=== PATIENT | male | born 1975 | race Caucasian/White ===

== ENCOUNTER 2016-10-02 06:42 | Inpatient (IN) | payer BC, OTHER ==
[2016-08-12 08:57] VITALS: BMI 27.0
[2016-08-12 09:10] VITALS: BMI 27.0
--- NOTE | 2016-08-12 09:23 | PAT Medication Instructions ---
Service Date Aug 12, 2016. Current Home Medication List Gabapentin (Neurontin), 300 MG PO TID Oxycodone Ir (Roxicodone Ir), 10 MG PO Q4-6H Tramadol (Ultram), 50 MG PO BID Medication Instructions For Your Scheduled Surgery - Take the following medications the morning of surgery with a sip of water OTHERWISE NOTHING TO EAT OR DRINK AFTER MIDNIGHT: Oxycodone Ir (Roxicodone Ir), 10 MG PO Q4-6H (may take if needed up to 4 hours prior to surgery) Tramadol (Ultram), 50 MG PO BID (may take if needed up to 4 hours prior to surgery) Gabapentin (Neurontin), 300 MG PO TID - Take the following medications as scheduled the night before surgery: Oxycodone Ir (Roxicodone Ir), 10 MG PO Q4-6H Tramadol (Ultram), 50 MG PO BID Gabapentin (Neurontin), 300 MG PO TID If you have any questions please call us at [phone] (Rhonda Banuelos PA-C ) or [phone] or [phone]
[2016-08-12 10:02] LABS: BASO % 0.4 %; BASO ABS # 0.03 K/uL (0-0.2); COMPLETE YES; HEMATOCRIT 42.2 % (42-52); IG% 0.1 %; LYMPH % 25.8 %; LYMPH ABS # 1.79 K/uL (1.2-3.4); MEAN CORPUSCULAR HEMOGLOBIN 30.8 pg (25-34); MEAN CORPUSCULAR HGB CONC 33.2 g/dl (32-36); MEAN PLATELET VOLUME 10.6 fL (7.4-10.4); MONO % 9.2 %; NEUT % 61.5 %; PLATELET COUNT 197 K/uL (130-400); RED BLOOD COUNT 4.54 M/uL (4.7-6.1); WHITE BLOOD COUNT 6.95 K/uL (4.8-10.8)
--- NOTE | 2016-08-12 10:19 | DIAGNOSTIC IMAGING REPORT ---
CHEST PREADMISSION(PA/LAT) CLINICAL HISTORY: Preoperative chest COMPARISON STUDY: No previous studies for comparison. FINDINGS: The cardiac and mediastinal contours are normal. There is no evidence of focal pulmonary consolidation. There is no evidence of failure. No pleural effusions are visualized.[ There are minimal left basilar atelectatic changes. IMPRESSION: No active disease in the chest. Electronically signed by: Louis Fraire M.D. 08/12/2016 10:18 AM
[2016-08-12 10:28] LABS: BUN/CREATININE RATIO 12.5 (10-20); CALCIUM 8.9 mg/dl (8.5-10.1); CREATININE 1.1 mg/dl (0.60-1.40); POTASSIUM 4.3 mmol/L (3.5-5.1)
--- NOTE | 2016-08-28 07:13 | History & Physical Bridge Note ---
H&P Re-Evaluation Bridge Note: I have examined the patient, reviewed the History & Physical and in the interval since the performance of the History & Physical I have noted the following changes of clinical significance: No changes noted
[~2016-10-02] VITALS: Ht 188 cm; Wt 91.0 kg
[2016-10-02] VITALS (8 sets, daily range): BP systolic 107–147; BP diastolic 72–94; PULSE 57–65; TEMP 36.4–36.7; O2SAT 95–100; Ht 188 cm; Wt 91.0 kg
[~2016-10-02 06:42] MED LIST: CEFAZOLIN 2000 MG/60 ML D5W 60 ML IV SCH; CEFAZOLIN 2000 MG/60 ML D5W IV SCH; GABA-113 PO; LACTATED RINGER'S 1000ML 1,000 ML IV SCH; LACTATED RINGER'S 1000ML IV SCH; OXYC1TAB3 PO; TRAM-10 PO
--- NOTE | 2016-10-02 10:14 | HISTORY & PHYSICAL EXAMINATION ---
DATE OF ADMISSION: 10/02/2016 CHIEF COMPLAINT: Low back and left leg pain. HISTORY OF PRESENT ILLNESS: Mr. Núñez is a pleasant individual who has been having difficulties with his lower back and pain going down his left leg for over a year. There is no specific trauma or event that had occurred. He has left leg pain that goes down to the knee. Any type of activity exacerbates his symptoms. He has had several epidural injections and at this point is considering possible surgical intervention. He denies any jovanni weakness, any other numbness, tingling or paresthesias. PAST MEDICAL HISTORY: Significant for lumbar disc herniation. MEDICATIONS: He is currently taking gabapentin, oxycodone, and tramadol trying to control his pain. He is not taking any other medications. ALLERGIES: He has no listed drug allergies. REVIEW OF SYSTEMS: Recorded in the patient's medical history. SOCIAL HISTORY: The patient is to use alcohol in the past, but is not currently using. He is a former smoker. PHYSICAL EXAMINATION: GENERAL: On exam, he stands with an apparent level pelvis. Chelo line is midline. Moves easily about the exam room. MUSCULOSKELETAL: Lower extremity motor exam reveals focal atrophy. Strength and sensation both intact. Gait stable. Visual lee are grossly intact. SKIN: Intact. ABDOMEN: Soft, nontender. EXTREMITIES: Calves are soft and nontender. CARDIOVASCULAR: Reveals no gross abnormalities. The patient is alert and oriented. RADIOGRAPHIC IMAGES: A CAT scan from 10/09/2015 is available for review. This reveals severe left-sided neural foraminal stenosis at L5-S1. There is vacuum disc phenomenon at this level as well. ASSESSMENT AND PLAN: The patient has significant disc space collapse at L5-S1 with significant neural foraminal stenosis on the left. He has failed conservative measures and at this point, he is considering surgical intervention. Surgically, I would perform a lumbar decompression at L5-S1. This will be done in conjunction with instrumented fusion to help maintain foraminal space. The main benefit of this surgery will be significant chance for reduction of his radicular complaints to a lesser degree his lower back pain. Risks and benefits were described and he will proceed with surgical intervention described above.
[2016-10-02] MEDS ORDERED: ROCURONIUM BROMIDE 10 MG/ML 5 ML VIAL ONE (11:23)
[2016-10-02] MEDS ORDERED: PROPOFOL IV EMULSION 10 MG/ML 20 ML VIAL IV ONE (11:23)
[2016-10-02] MEDS ORDERED: DEXAMETHASONE SOD INJ 4 MG/ML VIAL ONE ×2 (11:23→11:47)
[2016-10-02] MEDS ORDERED: FENTANYL CITRATE INJ 50 MCG/1 ML 2 ML VIAL ONE ×5 (11:23→16:35)
[2016-10-02] MEDS ORDERED: ONDANSETRON INJ 2 MG/ML 2 ML VIAL ONE ×2 (11:23→11:47)
[2016-10-02] MEDS ORDERED: EpHEDrine SULFATE INJ 50 MG/ML AMP ONE (11:23)
[2016-10-02] MEDS ORDERED: MIDAZOLAM HCL 1 MG/ML 2ML VIAL ONE ×2 (11:23→15:30)
[2016-10-02] MEDS ORDERED: LIDOCAINE HCL 2% 2 ML VIAL (20MG/ML) ONE (11:23)
[2016-10-02] MEDS ORDERED: PHENYLEPHRINE HCL INJ 10 MG/ML VIAL ONE (11:23)
[2016-10-02] MEDS ORDERED: NEOSTIGMINE METHYLSULFATE 1 MG/ML 10ML VIAL ONE (11:23)
[2016-10-02] MEDS ORDERED: SUCCINYLCHOLINE CHLORIDE 20 MG/ML 10 ML VIAL IV ONE (11:23)
[2016-10-02] MEDS ORDERED: GLYCOPYRROLATE INJ 0.2 MG/ML VIAL ONE (11:23)
[2016-10-02] MEDS ORDERED: HYDROmorphone INJ 2 MG/ML SYR/VIAL ONE ×2 (14:09→17:36)
[2016-10-02] MEDS ORDERED: BUPIVACAINE/EPINEPHRINE 0.5% MPF 1:200,000 30 ML VIAL INJ ONE (14:13)
[2016-10-02] MEDS ORDERED: NALOXONE HCL 0.4 MG/1 ML VIAL/CARP IV PRN ×2 (15:15)
[2016-10-02] MEDS ORDERED: FLOSEAL HEMOSTATIC MATRIX 10ML TOP ONE (15:15)
[2016-10-02] MEDS ORDERED: BISACODYL 10 MG SUPP PR PRN (15:15)
[2016-10-02] MEDS ORDERED: hydrOXYzine HCL 25 MG TAB PO PRN (15:15)
[2016-10-02] MEDS ORDERED: ACETAMINOPHEN 500 MG TAB PO PRN (15:15)
[2016-10-02] MEDS ORDERED: SODIUM CHLORIDE 0.9% 1000ML 1,000 ML IV SCH (15:15)
[2016-10-02] MEDS ORDERED: PROMETHAZINE HCL INJ 12.5 MG in SODIUM CHLORIDE 0.9% 50ML 50 ML IV PRN (15:15)
[2016-10-02] MEDS ORDERED: MAGNESIUM HYDROXIDE SUSP 30 ML UDC PO PRN (15:15)
[2016-10-02] MEDS ORDERED: FAMOTIDINE 20 MG TAB PO PRN (15:15)
[2016-10-02] MEDS ORDERED: ONDANSETRON INJ 2 MG/ML 2 ML VIAL IV PRN ×2 (15:15→16:15)
[2016-10-02] MEDS ORDERED: LORAZEPAM INJ 0.5 MG in SYRINGE 0 ML IV PRN (15:15)
[2016-10-02] MEDS ORDERED: DO NOT ADMINISTER FLU VACCINE PRN ×3 (15:15)
[2016-10-02] MEDS ORDERED: DO NOT ADMINISTER PNEUMOCOCCAL VACCINE PRN ×2 (15:15)
[2016-10-02] MEDS ORDERED: METOCLOPRAMIDE HCL INJ 5 MG/ML 2 ML VIAL IV PRN (15:15)
[2016-10-02] MEDS ORDERED: ACETAMINOPHEN IV 100 ML IV PRN (15:15)
[2016-10-02] MEDS ORDERED: SOD PHOSPHATE/SOD BIPHOSPHATE ENEMA 132 ML BTL PR PRN (15:15)
--- NOTE | 2016-10-02 15:15 | [facility] Post Operative Brief Note ---
Immediate Operative Summary Operative Date Oct 02, 2016. Pre-Operative Diagnosis Lumbar Spinal Stenosis Post-Operative Diagnosis Lumbar Spinal Stenosis Procedure(s) Performed tlif Surgeon Dr. Herrmnan Film Drying Machine Operator Surgeon(s) HALEY Infante Estimated Blood Loss 100 Findings stenosis Specimens none per surgeon
[2016-10-02] MEDS ORDERED: BACITRACIN 50000 UNIT VIAL IR ONE (15:16)
--- NOTE | 2016-10-02 15:20 | DIAGNOSTIC IMAGING REPORT ---
LUMBAR SPINE, INTRAOPERATIVE FLUOROSCOPY HISTORY: L5-S1 decompression/fusion. FLUOROSCOPY TIME: 14.8 seconds. FINDINGS: Intraoperative fluoroscopy was provided for the lumbar spine. 2 fluoroscopic spot images were obtained. L5-S1 posterior decompression and fusion with pedicle screws and rods. The hardware appears intact. IMPRESSION: Fluoroscopy provided for a L5-S1 posterior decompression/fusion. Electronically signed by: Emilio Carrasco M.D. 10/02/2016 3:19 PM Dictated Date/Time: 10/02/2016 3:18 PM
[2016-10-02] MEDS: HYDROmorphone HCL 0.5MG/ML 50 ML CASSETTE IV PRN ×4 (15:40→19:00)
--- NOTE | 2016-10-02 15:54 | OPERATIVE REPORT ---
DATE OF OPERATION: 10/02/2016 PREOPERATIVE DIAGNOSIS: Spinal stenosis L5-S1. POSTOPERATIVE DIAGNOSIS: Same. PROCEDURE PERFORMED: 1. Lumbar decompression, medial facetectomy and foraminotomy L5-S1. 2. Posterior spinal fusion L5-S1. 3. Placement posterior instrumentation using Orthros rods and screws, L5-S1. 4. Interbody fusion L5-S1. 5. Placement of PEEK cage 9 x 26 mm at L5-S1. 6. Placement of locally harvested morselized autograft posterior gutters. 7. Placement of FiberNet and OsteoStrux in the the interbody space and posterior gutters. SURGEON: Dr. Scott Herrmann. SENIOR SYSTEMS DEVELOPER: Harvey Brasher PA-C. Due to the complex nature of the procedure, the entire surgery was performed with the talent acquisition assistant of Harvey Brasher PA-C. The assistant professor sculpture, under direct supervision, was involved in the actual performance of all aspects of the surgical procedure including hemostasis, tissue retraction and incision, instrument management, patient positioning, and wound closure. ANESTHESIA: General. DISPOSITION: The patient awakened and taken to PACU in stable condition. HISTORY OF PATIENT'S PROBLEMS: This is a 40-year-old male that presents with above-mentioned diagnosis. After failing an extensive course of nonoperative care, elected to undergo the above-mentioned procedure. Risks, benefits, pros, cons, and alternatives were outlined in detail preoperatively. OPERATION AND FINDINGS: DESCRIPTION OF PROCEDURE: The patient was met with preoperatively, case discussed and all questions were addressed. At that point the patient was taken back to operative suite and after undergoing successful general intubation by the department of anesthesia was placed in prone position on Wilmar table atop Ricki frame. All bony prominences were well padded and the eyes were inspected to ensure there was no external pressure placed upon them. At this point, lumbar spine was prepped and draped in normal sterile fashion. Sharp dissection with the assistance of Bovie cautery performed down to and exposing the lamina and transverse processes of L5 and the sacral ala bilaterally. From a caudal to cephalad fashion, complete laminectomy of L5 was performed. Endplates curetted to subcortical bleeding bone and a 9 x 26 mm PEEK cage filled with OsteoStrux and FiberNet tapped into position. The rods were then locked into final position bilaterally and transverse processes of L5 and the sacral ala burred to subcortical bone. FiberNet, OsteoStrux and locally harvested morcellized autograft was placed in the posterior gutters. A 7 flat SONIA drain was inserted. Incision was closed with 1-0 Vicryl in the fascia, 2-0 Vicryl subcutaneously, 4-0 Monocryl for final skin closure. Steri-Strips and sterile dressing placed. The patient was awakened and taken to PACU in stable condition. I attest to the content of the Intraoperative Record and any orders documented therein. Any exceptio ns are noted below.
[2016-10-02] MEDS ORDERED: FENTANYL CITRATE INJ 50 MCG/1 ML 2 ML VIAL IV PRN (16:15)
[2016-10-02] MEDS ORDERED: ATROPINE SULFATE 0.1 MG/ML 5ML SYR IV PRN (16:15)
[2016-10-02] MEDS: HYDROmorphone INJ 1 MG/ML SYR IV PRN ×8 (16:15→17:10)
[2016-10-02] MEDS ORDERED: EpHEDrine SULFATE INJ 50 MG/ML AMP IV PRN (16:15)
[2016-10-02] MEDS ORDERED: PROMETHAZINE HCL INJ 6.25 MG in SODIUM CHLORIDE 0.9% 50ML 50 ML IV PRN (16:15)
[2016-10-02] MEDS ORDERED: NURSING VERBAL MED ORDER ONE ×5 (17:15→18:00)
--- NOTE | 2016-10-02 18:32 | Anesthesiology Progress Note ---
Anesthesia Post Op Note Date & Time Oct 02, 2016 at 18:30 Vital Signs Pain Intensity: 10.0 Vital Signs Past 12 Hours Date Time Temp Pulse Resp B/P Pulse Ox O2 Delivery O2 Flow Rate FiO2 10/02/16 18:03 158/95 10/02/16 18:01 59 15 100 10/02/16 18:01 57 15 10/02/16 17:58 137/95 10/02/16 17:56 57 16 100 10/02/16 17:56 56 16 10/02/16 17:54 134/89 10/02/16 17:51 74 16 10/02/16 17:51 75 16 100 10/02/16 17:48 144/89 10/02/16 17:46 59 16 100 10/02/16 17:46 59 16 10/02/16 17:43 149/98 10/02/16 17:41 82 16 100 10/02/16 17:41 85 16 10/02/16 17:38 136/81 10/02/16 17:36 67 16 100 10/02/16 17:36 66 16 10/02/16 17:33 146/86 10/02/16 17:31 94 16 100 10/02/16 17:31 92 16 10/02/16 17:29 139/89 10/02/16 17:26 66 12 98 10/02/16 17:26 69 12 10/02/16 17:23 137/80 10/02/16 17:21 62 6 100 10/02/16 17:21 61 6 10/02/16 17:18 133/88 10/02/16 17:16 57 16 100 10/02/16 17:16 59 16 10/02/16 17:13 130/85 10/02/16 17:11 65 16 10/02/16 17:11 67 16 100 10/02/16 17:08 133/93 10/02/16 17:06 62 16 100 10/02/16 17:06 60 16 10/02/16 17:03 120/79 10/02/16 17:01 57 16 10/02/16 17:01 58 16 100 10/02/16 16:59 132/85 10/02/16 16:56 60 29 10/02/16 16:56 60 29 100 10/02/16 16:53 168/104 1/20/17 16:51 72 18 20/17 16:51 73 18 100 20/17 16:50 159/99 20/17 16:48 146/110 20/17 16:46 61 16 20/17 16:46 63 16 100 20/17 16:45 63 15 100 20/17 16:45 60 15 2017 16:43 135/95 20/17 16:40 87 13 17 16:40 88 13 100 2017 16:38 152/103 20/17 16:35 84 16 100 20/17 16:35 84 16 17 16:33 152/105 17 16:30 66 16 17 16:30 66 16 100 20/17 16:29 143/103 17 16:25 83 18 100 17 16:25 82 18 17 16:24 85 17 100 17 16:24 85 17 17 16:23 172/98 17 16:19 73 21 100 17 16:19 74 21 17 16:18 157/99 17 16:14 82 10 157/92 100 17 16:14 81 10 17 16:09 65 14 17 16:09 66 14 100 17 16:08 65 17 17 16:08 65 17 171/107 99 17 16:03 67 2 155/99 100 17 16:03 69 2 20/17 15:58 88 14 17 15:58 88 14 156/109 97 20/17 15:54 169/104 20/17 15:53 87 6 20/17 15:53 84 6 97 2017 15:48 86 15 2017 15:48 85 15 164/105 100 2017 15:43 17 20/17 15:43 82 17 2017 15:38 80 16 147/98 100 2017 15:38 36.5 84 18 147/98 100 Mask 10 10/02/16 15:38 82 16 10/02/16 07:03 36.4 58 18 107/81 95 Room Air Notes Mental Status: alert / awake / arousable, participated in evaluation Pt Amnestic to Procedure: Yes Nausea / Vomiting: adequately controlled Pain: adequately controlled Airway Patency, RR, SpO2: stable & adequate BP & HR: stable & adequate Hydration State: stable & adequate Anesthetic Complications: no major complications apparent Patient had significant pain in pacu with high narcotic tolerance. Dr Herrmann was called by the pacu nurse and did increase the teaseler to have a basal rate. patient will be placed on continuous pulse oxymetry overnight given his basal rate of hydromorphone
[2016-10-02] MEDS: LACTATED RINGER'S 1000ML 1,000 ML IV SCH ×2 (18:43→21:47)
[2016-10-02] MEDS: GABAPENTIN 300 MG CAP PO SCH (20:45)
[2016-10-02] MEDS: TRAMADOL HCL 50 MG TAB PO SCH (20:45)
[2016-10-02] MEDS: DOCUSATE SODIUM/SENNA 50/8.6MG TAB PO SCH (20:46)
[2016-10-02] MEDS: CEFAZOLIN IV 2,000 MG in DEXTROSE 5% 50ML 50 ML IV SCH (21:45)
[2016-10-02] MEDS: DEXAMETHASONE INJ 6 MG in SYRINGE 0 ML IV SCH (21:47)
[2016-10-03 03:50] VITALS: BP 123/72; PULSE 57; TEMP 36.5; O2SAT 99
[2016-10-03] MEDS: LACTATED RINGER'S 1000ML 1,000 ML IV SCH (04:12)
[2016-10-03] MEDS: DEXAMETHASONE INJ 6 MG in SYRINGE 0 ML IV SCH ×2 (05:39→13:29)
[2016-10-03] MEDS: CEFAZOLIN IV 2,000 MG in DEXTROSE 5% 50ML 50 ML IV SCH (05:39)
[2016-10-03] MEDS: OXYCODONE HCL IR 5 MG TAB (IMMEDIATE RELEASE) PO PRN ×3 (05:43→21:35)
[2016-10-03] MEDS: LORAZEPAM 0.5 MG TAB PO PRN ×2 (05:45→20:56)
[2016-10-03] MEDS ORDERED: DC PCA ONE (06:00)
[2016-10-03 06:07] LABS: BASO % 0.1 %; BASO ABS # 0.01 K/uL (0-0.2); COMPLETE YES; IG% 0.2 %; LYMPH % 6.1 %; LYMPH ABS # 0.63 K/uL (1.2-3.4); MEAN CELL VOLUME 90.9 fL (80-100); MEAN CORPUSCULAR HEMOGLOBIN 30.5 pg (25-34); MEAN CORPUSCULAR HGB CONC 33.5 g/dl (32-36); MONO % 4.3 %; NEUT % 89.3 %; PLATELET COUNT 175 K/uL (130-400); WHITE BLOOD COUNT 10.32 K/uL (4.8-10.8)
[2016-10-03 06:21] VITALS: BP 132/79; PULSE 60; TEMP 36.7; O2SAT 99
[2016-10-03] MEDS: HYDROmorphone INJ 1 MG/ML SYR IV PRN ×4 (06:32→19:44)
[2016-10-03 06:37] LABS: BUN/CREATININE RATIO 13.7 (10-20); CALCIUM 9.3 mg/dl (8.5-10.1); CREATININE 0.78 mg/dl (0.60-1.40)
[2016-10-03] MEDS ORDERED: KETOROLAC TROMETHAMINE 30 MG/ML VIAL IV PRN (08:45)
[2016-10-03] MEDS ORDERED: RXC5 PO (08:46)
--- NOTE | 2016-10-03 08:47 | Discharge Instructions ---
Discharge Instructions Admission Reason for Admission: Lumbar Spinal Stenosis Discharge Discharge Diagnosis / Problem: stenosis Discharge Goals Goal(s): Improve function Activity Recommendations Activity Limitations: per Instructions/Follow-up section . Instructions / Follow-Up Instructions / Follow-Up ACTIVITY RECOMMENDATIONS: SELF CARE INSTRUCTIONS AFTER THORACIC/LUMBAR FUSIONS 1. You may walk to your tolerance. It is good exercise for your legs and back. Expect some back and intermittent leg aches and pains. 2. You may perform "counter-top" level activities (make a sandwich, ellis with a project, etc.). 3. No bending or lifting of more than 10 pounds or back twisting of any nature (roll like a log when turning in bed). 4. You may ride in a car for 20-30 minutes at a time. No driving until after your first visit with your doctor. 5. Frequent changes of position and restricting sitting to 30 minutes at a time will help limit the amount of back spasms and stiffness you may experience. 6. You may discontinue the use of ambulatory aids (cane, crutches, etc.) once your strength and confidence allow. 7. You may engine buildup mechanic the shower and let water strike your incision when you arrive home at least once daily. Do not take a tub bath, sit in a hot tub or go into a swimming pool until after your first recheck in the office. SPECIAL CARE INSTRUCTIONS: VERY IMPORTANT TO READ AND REVIEW A. Your surgical incision has been closed with a cosmetic suture under the skin that will dissolve in about 6 weeks. In 14 days, you can use a pair of clean scissors and cut the suture that is left outside of the skin at the ends of your incision. 1. The small skin tapes can be removed 7 days after surgery if they have not fallen off by that point. 2. You may keep the wound open to air as much as possible to promote healing after post-op day number 5 unless told otherwise by your doctor. 3. If you think the wound looks like it is becoming infected (redness or worsening drainage) and/or you are experiencing fever, chill or worsening back pain and muscle spasms, contact the office so that we may evaluate you as soon as possible. B. Complications are uncommon, but please contact us if you have any signs or symptoms of: 1. wound infection (fever higher than 102.5 degrees F, redness, separation of wound, drainage, or increasing pain from the incision) 2. blood clots in legs (pain, swelling, redness and warmth in legs) 3. urinary tract infection (fever higher than 102.5 degrees F, burning upon urination or increased frequency of urination) 4. nerve problems (inability to walk on your toes or heels, numbness, loss of bowel or bladder control) 5. any other symptoms that concern you C. Please call the office at if you have any concerns or questions about your operation or recovery. D. No smoking! Smoking drastically decreases the chance of a solid fusion. E. Do not take any anti-inflammatory medications (Indocin, Advil, Motrin, Aspirin, Naprosyn, etc.) as these may inhibit the chance of a solid fusion. Tylenol is okay to take for pain. MANAGING PAIN AFTER SPINAL SURGERY 1. Narcotic medication is intended for short-term use and will be provided for surgical pain. Surgical pain usually lasts for a period of 4-6 weeks. Narcotic medication includes Percocet, Vicodin, Darvocet, Tylenol #3 or Lortab. 2. Longer-term pain is more appropriately treated with non-narcotic medication such as Tylenol ES. 3. Muscle spasm is not appropriately treated with narcotics. Muscle relaxers such as Soma, Flexeril or Skelaxin can be used along with Tylenol ES. 4. Remember that we all live with some "aches and pains". This is not unusual or uncommon after an injury or as we get older. a. Back pain is expected and may include muscle spasms for 4 to 6 weeks after surgery. The pain should gradually improve. If the pain worsens for no apparent reason, please contact the office. b. Intermittent leg pain may also be experienced and should not be concerned about unless it worsens for no apparent reason. If so, please contact the office. 5. We will provide appropriate medication within the normal guidelines of their prescribed use. We will also be very cautious and aware of potential abuse and extended duration of patients' medication needs. a. Pain medications are for your comfort and to assist with sleep and rest so that the tissue can heal. They are not provided in order to return to normal activity and should not be used through the day. To do so or worsening pain at night can result from ongoing tissue damage and development of tolerance to the prescribed medicine. 6. Please allow 2-3 days to process refills. Prescriptions will not be mailed but must be picked up at the office. FOLLOW UP VISIT: Keep your scheduled follow-up appointment. Any questions, please call the office at . Current Hospital Diet Patient's current hospital diet: Regular Diet Discharge Diet Recommended Diet: Regular Diet Procedures Procedures Performed: L5-S1 Transforaminal Lumbar Decompression/Laminectomy; Discectomy; Placement of Interbody Spacer; Pedicle Screw Fixation; Application Autograft, Posterolateral Gutter Fusion, Use of Fibrinet Pending Studies Studies pending at discharge: no Medical Emergencies . Who to Call and When: Medical Emergencies: If at any time you feel your situation is an emergency, please call 911 immediately. . Non-Emergent Contact Non-Emergency issues call your: Primary Care Provider . "Provider Documentation" section prepared by Scott Herrmann. VTE Core Measure Inpt VTE Proph given/why not?: Jacques Del Cid, SCD's
[2016-10-03] MEDS: GABAPENTIN 300 MG CAP PO SCH ×3 (08:56→20:55)
[2016-10-03] MEDS: TRAMADOL HCL 50 MG TAB PO SCH ×2 (08:56→20:56)
[2016-10-03] MEDS ORDERED: NURSING VERBAL MED ORDER ONE (09:15)
--- NOTE | 2016-10-03 09:48 | PROGRESS NOTE ---
DATE: 10/03/2016 DATE: 10/03/2016. SUBJECTIVE: Postop day 1. Back pain is controlled. Leg pain improved. Vital signs stable. T-max 36.7. SONIA drained 50 mL. Hematocrit this a.m. is 40.0. OBJECTIVE: On exam the patient has good strength to testing and appears comfortable, has been up and ambulatory. ASSESSMENT: Status post lumbar decompression and fusion. PLAN: At this time, will continue physical therapy today. Anticipate discharge home tomorrow.
[2016-10-03 12:23] VITALS: BP 106/64; PULSE 61; TEMP 36.8; O2SAT 94
[2016-10-03] MEDS: ALUMINUM/MAGNESIUM SUSP 30 ML UDC PO PRN ×2 (14:21→20:59)
[2016-10-03 15:01] VITALS: BP 92/52; PULSE 65; TEMP 36.8; O2SAT 93
[2016-10-03 15:02] VITALS: BP 99/61
[2016-10-03] MEDS: DOCUSATE SODIUM/SENNA 50/8.6MG TAB PO SCH (20:55)
[2016-10-03 23:00] VITALS: BP 103/63; PULSE 60; TEMP 36.4; O2SAT 95
[2016-10-04] MEDS: OXYCODONE HCL IR 5 MG TAB (IMMEDIATE RELEASE) PO PRN (05:59)
[2016-10-04] MEDS: POLYETHYLENE (MIRALAX) 17 GM PACK PO SCH ×2 (06:00→11:36)
[2016-10-04 06:40] VITALS: BP 133/89; PULSE 87; TEMP 36.5; O2SAT 94
[2016-10-04 07:30] VITALS: O2SAT 94
[2016-10-04] MEDS: GABAPENTIN 300 MG CAP PO SCH ×2 (07:36→13:34)
[2016-10-04] MEDS: TRAMADOL HCL 50 MG TAB PO SCH (07:37)
[2016-10-04] MEDS: HYDROmorphone INJ 1 MG/ML SYR IV PRN ×2 (07:40→12:14)
[2016-10-04] MEDS ORDERED: NURSING VERBAL MED ORDER ONE (11:45)
[2016-10-04 12:40] VITALS: BP 133/89; PULSE 87; TEMP 36.5; O2SAT 94
--- NOTE | 2016-10-05 02:01 | DISCHARGE SUMMARY ---
PRINCIPAL DIAGNOSIS: Spinal stenosis. HOSPITAL COURSE FOLLOWS: On October 02, patient underwent multilevel lumbar decompression and fusion, tolerated this well and taken to the orthopedic floor postoperatively. Postop day #1, he was up and ambulatory. Leg pain improved. Progressed to postop day #2, SONIA drain decreased appropriately, subsequently discharged home. Discharge orders and instructions found on the chart for further review.
== END 2016-10-04 13:50 | disposition home or self-care (01) | DRG 460 ==
LOC: ENRESERVDT → ENRESERVTM → C.ACU 06:42 → C.3E 12:00
PROVIDERS: ADMIT Orthopaedic Surgery Orthopaedic Surgery of the Spine; ATTEND Orthopaedic Surgery Orthopaedic Surgery of the Spine
PROC: 0SG30AJ Fusion of Lumbosacral Joint with Interbody Fusion Device, Posterior Approach, Anterior Column, Open Approach (ICD-10-PCS; principal; 2016-10-02 12:00)
PROC: 0SG3071 Fusion of Lumbosacral Joint with Autologous Tissue Substitute, Posterior Approach, Posterior Column, Open Approach (ICD-10-PCS; principal; 2016-10-02 12:00)
DX: M48.07 Spinal stenosis, lumbosacral region (principal); Z87.891 Personal history of nicotine dependence

== ENCOUNTER 2021-08-17 23:57 | Inpatient (IN) ==
[2021-08-18] MEDS ORDERED: ACETAMINOPHEN 1,000 MG/100 ML VIAL IV STA (00:36)
[2021-08-18] MEDS ORDERED: GI COCKTAIL ED USE PO ONE (00:36)
[2021-08-18] MEDS ORDERED: KETOROLAC 30 MG/ML VIAL IV STA (00:36)
[2021-08-18] MEDS ORDERED: PROCHLORPERAZINE 1 ML IV ONE (00:36)
[2021-08-18] MEDS ORDERED: diphenhydrAMINE 50 MG/ML VIAL IV STA (00:36)
[2021-08-18 00:41] LABS: Basophils # (auto) 0.02 K/uL (0-0.2); Basophils % (auto) 0.1 %; Eosinophils # (auto) 0.01 K/uL (0-0.5); Eosinophils % (auto) 0.1 %; Hematocrit (blood only) 43.2 % (42-52); Hemoglobin 14.3 g/dL (14.0-18.0); Immature Granulocytes # (auto) 0.03 K/uL (0.00-0.02); Immature Granulocytes % (auto) 0.2 %; Lymphocytes # (auto) 0.97 K/uL (1.2-3.4); Lymphocytes % (auto) 5.8 %; Mean Corpuscular Hemoglobin 31.3 pg (25-34); Mean Corpuscular Hgb Conc 33.1 g/dL (32-36); Mean Corpuscular Volume 94.5 fL (80-100); Mean Platelet Volume 9.6 fL (7.4-10.4); Monocytes # (auto) 1.17 K/uL (0.11-0.59); Neutrophils # (auto) 14.55 K/uL (1.4-6.5); Neutrophils % (auto) 86.8 %; Platelet Count 332 K/uL (130-400); RDW Coefficient of Variation 13.4 % (11.5-14.5); RDW Standard Deviation 45.5 fL (36.4-46.3); Red Blood Count 4.57 M/uL (4.7-6.1); White Blood Count 16.75 K/uL (4.8-10.8)
[2021-08-18] MEDS ORDERED: SODIUM CHLORIDE 0.9% 1000ML 1,000 ML IV SCH ×4 (00:45→18:30)
[2021-08-18 01:03] LABS: Albumin Level 4.1 gm/dl (3.4-5.0); BUN Creatinine Ratio 11.8 (10-20); Calcium 10.2 mg/dl (8.5-10.1); Creatinine Clr Calc Pharmacy 110.2 ml/min; Est GFR (African American) 87.7 ml/min; Est GFR (Non-African American) 75.6 ml/min; Potassium 3.7 mmol/L (3.5-5.1)
[2021-08-18 01:06] LABS: Bilirubin,Total 0.4 mg/dl (0.2-1); Globulin 4.2 gm/dl (2.5-4.0); Total Protein 8.3 gm/dl (6.4-8.2)
[2021-08-18 01:18] LABS: INR 1.1 (0.9-1.1); Partial Thromboplastin Ratio 1.1; Partial Thromboplastin Time 28.5 Seconds (21.0-31.0); Prothrombin Time 10.9 Seconds (9.0-12.0)
[2021-08-18 01:29] LABS: Amylase 359 U/L (25-115); Magnesium 2.2 mg/dl (1.8-2.4); Troponin I < 0.015 ng/ml (0-0.045)
[2021-08-18] MEDS ORDERED: OPTIRAY 320 100ml IV ONE (01:35)
--- NOTE | 2021-08-18 01:47 | Emergency Department Note ---
History of Present Illness General Chief complaint: Abdominal Pain Stated complaint: CENTRAL ABDOMINAL PAIN Time Seen by Provider: 08/18/21 00:20 History of Present Illness Maximum Pain Intensity: 5 This is a 45-year-old male presenting to the emergency department for evaluation of severe epigastric pain for the past 1 day. The patient states the pain does not radiate it is very sharp and located just under his ribs. He has had nausea and vomiting. No difficulty using the bathroom. The patient does not report a history of abdominal surgery in the past. He does have a history of chronic back pain and does take oxycodone 10/325 4 times daily. This has not helped his discomfort. He has not had fevers or chills. No chest pain, chest tightness, shortness of breath, or lower abdominal pain. No flank pain. 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 Beliefs That Will Affect Care: None Current Living Situation: Family Feels Safe at Home: Yes Assistive Devices: None Review of Systems A total of 10 systems reviewed and were otherwise negative Physical Exam Vital Signs Vital Signs - 24 hr 08/17/21 23:59 08/18/21 00:34 08/18/21 00:37 Temperature 36.5 C Temperature Source Temporal Artery Scan Pulse Rate 71 Pulse Rate [Right Finger] 73 Respiratory Rate 18 20 Respiratory Effort / Characteristics Non-Labored Spontaneous Respiratory Depth Normal Respiratory Pattern Regular Blood Pressure 152/93 H Blood Pressure [Left Arm] 162/107 H Blood Pressure Mean 112 Blood Pressure Mean [Left Arm] 125 Blood Pressure Position Sitting Pulse Oximetry 97 98 98 Oxygen Delivery Method Room Air Room Air Room Air Sepsis Recent Fever Within 48 Hours No Sepsis New/Unexplained Change in Mental Status N/A Sepsis Action Taken by Nursing No Action Required 08/18/21 01:00 08/18/21 01:50 08/18/21 02:05 Temperature Temperature Source Pulse Rate Pulse Rate [Right Finger] 89 78 72 Respiratory Rate 20 20 20 Respiratory Effort / Characteristics Respiratory Depth Respiratory Pattern Blood Pressure Blood Pressure [Left Arm] 148/110 H 143/87 H 158/98 H Blood Pressure Mean Blood Pressure Mean [Left Arm] 122 105 118 Blood Pressure Position Pulse Oximetry 99 98 98 Oxygen Delivery Method Room Air Room Air Sepsis Recent Fever Within 48 Hours Sepsis New/Unexplained Change in Mental Status Sepsis Action Taken by Nursing 08/18/21 02:42 08/18/21 03:13 08/18/21 04:23 Temperature Temperature Source Pulse Rate Pulse Rate [Right Finger] 78 73 85 Respiratory Rate 20 20 20 Respiratory Effort / Characteristics Respiratory Depth Respiratory Pattern Blood Pressure Blood Pressure [Left Arm] 164/99 H 130/82 169/101 H Blood Pressure Mean Blood Pressure Mean [Left Arm] 120 98 123 Blood Pressure Position Pulse Oximetry 97 96 97 Oxygen Delivery Method Room Air Room Air Room Air Sepsis Recent Fever Within 48 Hours Sepsis New/Unexplained Change in Mental Status Sepsis Action Taken by Nursing VITALS: Vitals are noted on the nurse's note and reviewed by myself. Vital signs stable. GENERAL: Well-developed, well-nourished, white male who appears moderately uncomfortable on exam. He is overall cooperative. NECK: Supple without nuchal rigidity. No lymphadenopathy. No thyromegaly. Cervical spine is nontender. HEART: Regular rate and rhythm without murmurs gallops or rubs. LUNGS: Clear to auscultation bilaterally without wheezes, rales or rhonchi. No retractions or accessory muscle use. ABDOMEN: Positive normal bowel sounds x 4. Soft with distinct epigastric tenderness. No right upper quadrant or lower tenderness. No flank tenderness. No rash. MUSCULOSKELETAL: No muscle atrophy, erythema, or edema noted. Full range of motion in all extremities. NEURO: Patient was alert and oriented to person place and time. CN II through XII grossly intact. 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 Stop: 09/01/21 18:18 Last Admin: 08/18/21 19:28 Dose: 30 mg Documented by: [id number] Cosigned by: [id number] Famotidine 20 mg/ Syringe 5 mls @ 2.5 mls/min IV BID LEXUS Stop: 09/17/21 09:29 Last Admin: 08/18/21 10:04 Dose: 2.5 mls/min Documented by: [id number] Sodium Chloride (Nss 1000ml) 1,000 mls @ 15 mls/hr IV .Q24H LEXUS Stop: 09/01/21 18:19 Last Admin: 08/18/21 19:38 Dose: 15 mls/hr Documented by: [id number] Discontinued Medications Al Hydrox/Mg Hydrox/Simethicone (Gi Cocktail Ed Use) 1 dose PO ONE ONE Stop: 08/18/21 00:37 Last Admin: 08/18/21 00:53 Dose: 1 dose Documented by: [id number] Diphenhydramine HCl (Diphenhydramine 50 Mg/Ml Vial) 50 mg IV NOW STA Stop: 08/18/21 00:37 Last Admin: 08/18/21 00:53 Dose: 50 mg Documented by: [id number] Hydromorphone HCl (Hydromorphone Inj 1 Mg/Ml Syringe) 1 mg IV Q2H PRN PRN Reason: Pain Stop: 09/01/21 04:43 Last Admin: 08/18/21 10:06 Dose: 1 mg Documented by: [id number] Admin: 08/18/21 07:56 Dose: 1 mg Documented by: [id number] Admin: 08/18/21 05:20 Dose: 1 mg Documented by: [id number] Hydromorphone HCl (Hydromorphone Inj 1 Mg/Ml Syringe) 1 mg IV NOW STA Stop: 08/18/21 10:43 Last Admin: 08/18/21 10:48 Dose: 1 mg Documented by: [id number] Hydromorphone HCl (Hydromorphone Inj 1 Mg/Ml Syringe) 2 mg IV Q2H PRN PRN Reason: Pain Stop: 09/01/21 04:43 Last Admin: 08/18/21 15:09 Dose: 2 mg Documented by: [id number] Admin: 08/18/21 13:08 Dose: 2 mg Documented by: [id number] Hydromorphone HCl (Hydromorphone Inj 1 Mg/Ml Syringe) 1 mg IV NOW STA Stop: 08/18/21 16:43 Last Admin: 08/18/21 16:47 Dose: 1 mg Documented by: [id number] Sodium Chloride (Nss 1000ml) 1,000 mls @ 999 mls/hr IV .Q1H1M LEXUS Stop: 08/18/21 01:45 Last Infusion: 08/18/21 02:10 Dose: 0 mls/hr Documented by: [id number] Admin: 08/18/21 00:53 Dose: 999 mls/hr Documented by: [id number] Acetaminophen (Ofirmev) 1,000 mg in 100 mls @ 400 mls/hr IV NOW STA Stop: 08/18/21 00:50 Last Infusion: 08/18/21 01:09 Dose: 0 mls/hr Documented by: [id number] Admin: 08/18/21 00:53 Dose: 400 mls/hr Documented by: [id number] Prochlorperazine (Compazine) 1 mls @ 1 mls/min IV ONE ONE Stop: 08/18/21 00:37 Last Admin: 08/18/21 00:53 Dose: 1 mls/min Documented by: [id number] Sodium Chloride (Nss 1000ml) 1,000 mls @ 999 mls/hr IV .Q1H1M LEXUS Stop: 08/18/21 02:30 Last Infusion: 08/18/21 03:59 Dose: 0 mls/hr Documented by: [id number] Admin: 08/18/21 02:02 Dose: 999 mls/hr Documented by: [id number] Sodium Chloride (Nss 1000ml) 1,000 mls @ 999 mls/hr IV .Q1H1M LEXUS Stop: 08/18/21 05:44 Last Infusion: 08/18/21 10:31 Dose: 0 mls/hr Documented by: [id number] Admin: 08/18/21 05:29 Dose: 999 mls/hr Documented by: [id number] Sodium Chloride (Nss 1000ml) 1,000 mls @ 175 mls/hr IV .Q5H43M LEXUS Stop: 08/18/21 14:15 Last Infusion: 08/18/21 14:18 Dose: 0 mls/hr Documented by: [id number] Admin: 08/18/21 10:03 Dose: 250 mls/hr Documented by: [id number] Infusion: 08/18/21 09:29 Dose: 250 mls/hr Documented by: [id number] Admin: 08/18/21 05:29 Dose: 250 mls/hr Documented by: [id number] Ioversol (Optiray 320 100ml) 94 ml IV ONCE ONE Stop: 08/18/21 01:36 Last Admin: 08/18/21 01:35 Dose: 94 ml Documented by: [id number] Ketorolac Tromethamine (Ketorolac 30 Mg/Ml Vial) 30 mg IV NOW STA Stop: 08/18/21 00:37 Last Admin: 08/18/21 00:53 Dose: 30 mg Documented by: [id number] Ketorolac Tromethamine (Ketorolac Tromethamine 15 Mg/Ml Vial) 15 mg IV Q6H PRN PRN Reason: Pain Stop: 08/23/21 06:08 Last Admin: 08/18/21 18:00 Dose: 15 mg Documented by: [id number] Admin: 08/18/21 13:07 Dose: 15 mg Documented by: [id number] Admin: 08/18/21 06:25 Dose: 15 mg Documented by: [id number] Morphine Sulfate (Morphine Sulfate 4 Mg/Ml 1 Ml Carp\Vial) 4 mg IV Q30M PRN PRN Reason: Pain Stop: 09/01/21 01:29 Last Admin: 08/18/21 04:18 Dose: 4 mg Documented by: [id number] Admin: 08/18/21 03:12 Dose: 4 mg Documented by: [id number] Admin: 08/18/21 02:36 Dose: 4 mg Documented by: [id number] Admin: 08/18/21 02:02 Dose: 4 mg Documented by: [id number] Medical Decision Making Differential Diagnosis Differential diagnosis: Etiologies such as biliary colic, cholecystitis, hepatitis, pancreatitis, cardiac disease, pancreatitis, gastritis, peptic ulcer disease, appendicitis, cystitis, diverticulitis, mesenteric ischemia, inflammatory bowel disease, ileus, bowel obstruction, testicular/adnexal torsion, aortic pathology, shingles, as well as others were considered Laboratory Data Result diagrams: 08/18/21 00:06 08/18/21 00:06 Lab Results 08/18/21 08/18/21 08/18/21 Range/Units 00:06 00:06 00:52 WBC 16.75 H (4.8-10.8) K/uL RBC 4.57 L (4.7-6.1) M/uL Hgb 14.3 (14.0-18.0) g/dL Hct 43.2 (42-52) % MCV 94.5 (80-100) fL MCH 31.3 (25-34) pg MCHC 33.1 (32-36) g/dL RDW Std Deviation 45.5 (36.4-46.3) fL RDW Coeff of Steffany 13.4 (11.5-14.5) % Plt Count 332 (130-400) K/uL MPV 9.6 (7.4-10.4) fL Immature Gran % (Auto) 0.2 % Neut % (Auto) 86.8 % Lymph % (Auto) 5.8 % Haskell % (Auto) 7.0 % Eos % (Auto) 0.1 % Baso % (Auto) 0.1 % Neut # (Auto) 14.55 H (1.4-6.5) K/uL Lymph # (Auto) 0.97 L (1.2-3.4) K/uL Haskell # (Auto) 1.17 H (0.11-0.59) K/uL Eos # (Auto) 0.01 (0-0.5) K/uL Baso # (Auto) 0.02 (0-0.2) K/uL Immature Gran # (Auto) 0.03 H (0.00-0.02) K/uL PT 10.9 (9.0-12.0) Seconds INR 1.1 (0.9-1.1) APTT 28.5 (21.0-31.0) Seconds PTT Ratio 1.1 Sodium 138 (136-145) mmol/L Potassium 3.7 (3.5-5.1) mmol/L Chloride 103 (98-107) mmol/L Carbon Dioxide 29 (21-32) mmol/L Anion Gap 6.0 (3-11) BUN 14 (7-18) mg/dl Creatinine 1.16 (0.6-1.4) mg/dl Est Cr Clr Drug Dosing 110.2 ml/min Est GFR ( Amer) 87.7 ml/min Est GFR (Non-Af Amer) 75.6 ml/min BUN/Creatinine Ratio 11.8 (10-20) Glucose 166 H (70-99) mg/dl Calcium 10.2 H (8.5-10.1) mg/dl Magnesium (1.8-2.4) mg/dl Total Bilirubin 0.4 (0.2-1) mg/dl AST 15 (15-37) U/L ALT 30 (12-78) Alkaline Phosphatase 86 (45-117) U/L Troponin I (0-0.045) ng/ml Total Protein 8.3 H (6.4-8.2) gm/dl Albumin 4.1 (3.4-5.0) gm/dl Globulin 4.2 H (2.5-4.0) gm/dl Albumin/Globulin Ratio 1.0 (0.9-2) Triglycerides (0-150) mg/dl Cholesterol (0-200) mg/dl LDL Cholesterol, Calc mg/dl VLDL Cholesterol, Calc mg/dl HDL Cholesterol mg/dl Cholesterol/HDL Ratio Amylase (25-115) U/L Lipase 2671 H (73-393) U/L Ethyl Alcohol mg/dL (0-3) mg/dl SARS-CoV-2, RNA, NAAT (NEGATIVE) 08/18/21 08/18/21 08/18/21 Range/Units 00:52 00:52 01:00 WBC (4.8-10.8) K/uL RBC (4.7-6.1) M/uL Hgb (14.0-18.0) g/dL Hct (42-52) % MCV (80-100) fL MCH (25-34) pg MCHC (32-36) g/dL RDW Std Deviation (36.4-46.3) fL RDW Coeff of Steffany (11.5-14.5) % Plt Count (130-400) K/uL MPV (7.4-10.4) fL Immature Gran % (Auto) % Neut % (Auto) % Lymph % (Auto) % Haskell % (Auto) % Eos % (Auto) % Baso % (Auto) % Neut # (Auto) (1.4-6.5) K/uL Lymph # (Auto) (1.2-3.4) K/uL Haskell # (Auto) (0.11-0.59) K/uL Eos # (Auto) (0-0.5) K/uL Baso # (Auto) (0-0.2) K/uL Immature Gran # (Auto) (0.00-0.02) K/uL PT (9.0-12.0) Seconds INR (0.9-1.1) APTT (21.0-31.0) Seconds PTT Ratio Sodium (136-145) mmol/L Potassium (3.5-5.1) mmol/L Chloride (98-107) mmol/L Carbon Dioxide (21-32) mmol/L Anion Gap (3-11) BUN (7-18) mg/dl Creatinine (0.6-1.4) mg/dl Est Cr Clr Drug Dosing ml/min Est GFR ( Amer) ml/min Est GFR (Non-Af Amer) ml/min BUN/Creatinine Ratio (10-20) Glucose (70-99) mg/dl Calcium (8.5-10.1) mg/dl Magnesium 2.2 (1.8-2.4) mg/dl Total Bilirubin (0.2-1) mg/dl AST (15-37) U/L ALT (12-78) Alkaline Phosphatase (45-117) U/L Troponin I < 0.015 (0-0.045) ng/ml Total Protein (6.4-8.2) gm/dl Albumin (3.4-5.0) gm/dl Globulin (2.5-4.0) gm/dl Albumin/Globulin Ratio (0.9-2) Triglycerides 173 H (0-150) mg/dl Cholesterol 185 (0-200) mg/dl LDL Cholesterol, Calc 113 mg/dl VLDL Cholesterol, Calc 35 mg/dl HDL Cholesterol 37 mg/dl Cholesterol/HDL Ratio 5 Amylase 359 H (25-115) U/L Lipase (73-393) U/L Ethyl Alcohol mg/dL < 3.0 (0-3) mg/dl SARS-CoV-2, RNA, NAAT NEGATIVE (NEGATIVE) Imaging Data Radiologist's Impression: Abdomen/Pelvis CT 08/18/21 00:36 CT OF THE ABDOMEN AND PELVIS WITH CONTRAST CLINICAL HISTORY: Epigastric abdominal pain. COMPARISON STUDY: Abdominal ultrasound November 15, 2014. CT of the abdomen and pelvis May 22, 2013. TECHNIQUE: Following IV administration of 94 mL of Optiray, axial images of the abdomen and pelvis were obtained from the lung bases to the proximal femurs. Images were reviewed in the axial, sagittal, and coronal planes. IV contrast was administered without complication. Automated exposure control was utilized for the study. A dose lowering technique was utilized adhering to the principles of ALARA. CT DOSE: 739.64 mGy.cm FINDINGS: Lung bases are unremarkable. No pneumatosis, free air or portal venous gas is present. Focal fat along the ligamentum teres. No hepatic lesions are present. The gallbladder is mildly distended. There is no pericholecystic infiltration. There is mild dilatation of the common bile duct, measuring 1 cm in diameter. There is moderate peripancreatic stranding and fluid. No pe ripancreatic fluid collections are present. There is no definite evidence for pancreatic necrosis. Major vessels are patent. The spleen and adrenal glands are unremarkable. Probable cyst within the upper pole the left kidney is difficult to characterize given its small size. Multiple small left renal calculi are present. There are possible right renal calculi versus excreted contrast. There are no ureteral calculi and there is no hydronephrosis. Caliber and wall thickness of small and large bowel are normal. There is no evidence for a bowel obstruction. The appendix is normal. There is no lymphadenopathy. No acute fracture or suspicious lesion is identified within the visualized skeletal str uctures. Patient is status post L5-S1 discectomy, posterior decompression and bilateral pedicle screw fusion. Hyperdense material is noted within portions of the colon. IMPRESSION: 1. Moderate peripancreatic stranding and fluid consistent with acute pancreatitis. No peripancreatic fluid collection. 2. Mild dilatation of the common bile duct which could be correlated with liver function tests. Mild gallbladder distention. No pericholecystic infiltration. 3. Left-sided nephrolithiasis. Possible small right renal calculi. No ureteral calculi or hydronephrosis. ACT 112: Negative or not required by law. Electronically signed by: Esteban Parra M.D. 08/18/2021 7:14 AM [facility] Narrative Physical exam and history were performed. Nursing notes, EMR, and Medication List were personally reviewed. Patient appears to have severe epigastric abdominal pain bringing him to the ER. He appears quite uncomfortable on exam. IV access was established and labs were obtained. He was given IV Toradol, IV Tylenol, IV Benadryl, IV Compazine, and a GI cocktail. The patient was sent to CT scan for further evaluation of his symptoms. The patient's blood work is as above and was reviewed. He does have an elevated white blood cell count of 16,000. He does not have significant electrolyte imbalance. Glucose is 166. Troponin x1 is negative. Both his amylase and lipase are elevated at 359 and 2671. Alcohol is negative. Covid is negative. CT scan is as above and was reviewed by myself and radiology. The patient ap pears to have pancreatitis based on labs and imaging. The patient was given IV morphine for further comfort. He was placed n.p.o. Overall the patient does not appear well for discharge home. The case was discussed with the on-call hospitalist team who agreed to evaluate the patient here in the department. Please see their dictation for further patient course, plan, and disposition. The chart was completed utilizing [employer] Speech Voice Recognition Software. Grammatical errors, random word insertions, pronoun errors, and incomplete sentences are an occasional consequence of this system due to software limitations, ambient noise, and hardware issues. Any formal questions or concerns about the content, text, or information contained within the body of this dictation should be directly addressed to the provider for clarification. . Impression & Plan Acute pancreatitis, Cocaine abuse, Epigastric abdominal pain Discharge Plan Visit Data Chief Complaint: Abdominal Pain Stated Complaint: CENTRAL ABDOMINAL PAIN ED Provider: Nicholas Hampton ED Midlevel Provider: Onofre Mcdonald Discharge Problem: Acute pancreatitis, Cocaine abuse, Epigastric abdominal pain Patient Disposition: Admitted As Inpatient Discharge Instructions Interventions: ED Discharge Assessment Last Done: 08/18/21 04:39
[2021-08-18] MEDS: MoRPHine SULFATE 4 MG/ML 1 ML CARP\\VIAL IV PRN ×4 (02:02→04:18)
[2021-08-18 02:18] LABS: Appearance Urine Turbid (Clear); Bacteria Urine Automated Negative (Negative); Bilirubin Urine Negative (Negative); Blood Urine Negative (Negative); Color Urine Yellow; Epithelial Cell Urine Auto 20-30 /lpf (0-5); Glucose Urine UA Negative (Negative); Ketones Urine 1+ (Negative); Leukocyte Esterase Urine Negative (Negative); Nitrite Urine Negative (Negative); Protein Urine Negative (Negative); RBC Urine Automated 0-4 /hpf (0-4); Specific Gravity Urine 1.044 (1.000-1.030); Urobilinogen Urine Negative (Negative); pH Urine 8.5 (4.5-7.5)
[2021-08-18 02:46] LABS: Amphetamines+Metham, Urine Neg (Neg); Barbiturates, Urine Neg (Neg); Benzodiazepine, Urine Neg (Neg); Cocaine, Urine Pos (Neg); MDMA (Ecstacy), Urine Neg (Neg); Methadone, Urine Neg (Neg); Opiate, Urine Pos (Neg); Phencyclidine, Urine Neg (Neg)
--- NOTE | 2021-08-18 04:32 | History & Physical Report ---
Date of Service August 18, 2021 Assessment & Plan (1) Acute pancreatitis: Plan: 45yo male presenting with acute pancreatitis. Severe epigastric abdominal pain and nausea, Cdblol=8847, CT with pancreatic and peripancreatic edema. No history of prior. No gallstones on imaging. Patient denies EtOH use. Denies substance abuse, however, is positive for cocaine (opiates as well - patient with longstanding prescription for percocet). Ca mildly elevated at 10.2 and triglycerides very mildly elevated at 173. LFTs WNL. No abdominal trauma, new medications. Of note, patient's father did pass away with pancreatic cancer. Requiring significant amounts of Morphine in ER - Has received 16mg of Morphine thus far and is still in significant discomfort Has received NSS x 3L bolus -Admit to medical -Keep NPO, bowel rest -Continue IVF - NSS at 250mL/hr -Pain control with Dilaudid 1mg IV q 2 hours as needed -Zofran PRN nausea -Dulcolax MD PRN constipation -Repeat labs ordered for tomorrow AM Patient with UTox positive for cocaine metabolites as well as opiates. He denies recreational substance use. Mother is at bedside at this time which may preclude patient's honesty on this matter. He does have a prescription for Percocet. -Opiate and Cocaine verification sent from ER Plan: F/E/N - NSS at 250mL/hr, monitor electrolytes, NPO Ppx - Lovenox 40mg Code - Full Dispo - Admit to medical History of Present Illness Chief Complaint: abdominal pain Primary Care Provider: Kyle Coker PA-C Francis Núñez is a 45yo male with history of chronic back pain on longstanding Percocet presenting with acute pancreatitis. Patient reports developing severe epigastric abdominal pain with nausea and non-bloody/non-bilious emesis x 1 day. He has no prior history of pancreatis. Does not drink EtOH. No new medications or OTC agents. ER Course: Morphine 4mg IV x 4 doses (16mg), NSS x 2L, Phenergan Allergies Allergy/AdvReac Type Severity Reaction Status Date / Time No Known Allergies Allergy Verified 08/18/21 00:56 Home Medications Medication Instructions Recorded Confirmed Type oxycodone-acetaminophen 10 mg-325 1 tab PO Q6H PRN 08/18/21 08/18/21 History mg tablet Past Med/Surg History Medical History Kidney stones Lumbar stenosis with neurogenic claudication Surgical History No significant past surgical history Social History Smoking Status: Never smoker Preferred Language: Omani Feels Safe at Home: Yes Review of Systems Review of Systems: All systems reviewed & are unremarkable except as noted in HPI & below Physical Exam Physical Exam: General: patient in significant discomfort, moaning in pain and asking for more medication Skin: warm, dry, intact, no rashes or lesions HEENT: NC/AT, PERRL, EOMI, anicteric sclera, conjunctiva without injection, external ear normal to inspection and nontender, nares patent, moist mucus membranes, dentition intact, no oropharyngeal lesions, neck supple, trachea midline, no LAD, no thyromegaly, no JVD Heart: +S1/S2, regular, no m/r/g Lungs: equal air entry bilaterally, no rales/rhonchi/wheezes Abd: +BS, soft, ND, tender in epigastric region with voluntary guarding, no pe riumbilical ecchymosis or flank discoloration Ext: warm, 2+ pulses in UE/LE bilaterally, no clubbing/cyanosis or edema Neuro: nonfocal, patient AA&O x 4, speech intact, no facial droop, moving all ex tremities on command with equal strength 5/5\ Results & Data Results & Data ([facility]) Vital Signs (Past 12 Hours) Vital Signs Temp Pulse Pulse Resp BP BP Pulse Ox 08/18/21 04:23 85 20 169/101 H 97 08/18/21 03:13 73 20 130/82 96 08/18/21 02:42 78 20 164/99 H 97 08/18/21 02:05 72 20 158/98 H 98 08/18/21 01:50 78 20 143/87 H 98 08/18/21 01:00 89 20 148/110 H 99 08/18/21 00:37 98 08/18/21 00:34 73 20 162/107 H 98 08/17/21 23:59 36.5 C 71 18 152/93 H 97 Laboratory Results Laboratory Results WBC 16.75 K/uL (4.8-10.8) H 08/18/21 00:06 RBC 4.57 M/uL (4.7-6.1) L 08/18/21 00:06 Hgb 14.3 g/dL (14.0-18.0) 08/18/21 00:06 Hct 43.2 % (42-52) 08/18/21 00:06 MCV 94.5 fL (80-100) 08/18/21 00:06 MCH 31.3 pg (25-34) 08/18/21 00:06 MCHC 33.1 g/dL (32-36) 08/18/21 00:06 RDW Std Deviation 45.5 fL (36.4-46.3) 08/18/21 00:06 RDW Coeff of Steffany 13.4 % (11.5-14.5) 08/18/21 00:06 Plt Count 332 K/uL (130-400) 08/18/21 00:06 MPV 9.6 fL (7.4-10.4) 08/18/21 00:06 Immature Gran % (Auto) 0.2 % 08/18/21 00:06 Neut % (Auto) 86.8 % 08/18/21 00:06 Lymph % (Auto) 5.8 % 08/18/21 00:06 [place] % (Auto) 7.0 % 08/18/21 00:06 Eos % (Auto) 0.1 % 08/18/21 00:06 Baso % (Auto) 0.1 % 08/18/21 00:06 Neut # (Auto) 14.55 K/uL (1.4-6.5) H 08/18/21 00:06 Lymph # (Auto) 0.97 K/uL (1.2-3.4) L 08/18/21 00:06 [place] # (Auto) 1.17 K/uL (0.11-0.59) H 08/18/21 00:06 Eos # (Auto) 0.01 K/uL (0-0.5) 08/18/21 00:06 Baso # (Auto) 0.02 K/uL (0-0.2) 08/18/21 00:06 Immature Gran # (Auto) 0.03 K/uL (0.00-0.02) H 08/18/21 00:06 PT 10.9 Seconds (9.0-12.0) 08/18/21 00:52 INR 1.1 (0.9-1.1) 08/18/21 00:52 APTT 28.5 Seconds (21.0-31.0) 08/18/21 00:52 PTT Ratio 1.1 08/18/21 00:52 Sodium 138 mmol/L (136-145) 08/18/21 00:06 Potassium 3.7 mmol/L (3.5-5.1) 08/18/21 00:06 Chloride 103 mmol/L (98-107) 08/18/21 00:06 Carbon Dioxide 29 mmol/L (21-32) 08/18/21 00:06 Anion Gap 6.0 (3-11) 08/18/21 00:06 BUN 14 mg/dl (7-18) 08/18/21 00:06 Creatinine 1.16 mg/dl (0.6-1.4) 08/18/21 00:06 Est Cr Clr Drug Dosing 110.2 ml/min 08/18/21 00:06 Est GFR ( Amer) 87.7 ml/min 08/18/21 00:06 Est GFR (Non-Af Amer) 75.6 ml/min 08/18/21 00:06 BUN/Creatinine Ratio 11.8 (10-20) 08/18/21 00:06 Glucose 166 mg/dl (70-99) H 08/18/21 00:06 Calcium 10.2 mg/dl (8.5-10.1) H 08/18/21 00:06 Magnesium 2.2 mg/dl (1.8-2.4) 08/18/21 00:52 Total Bilirubin 0.4 mg/dl (0.2-1) 08/18/21 00:06 AST 15 U/L (15-37) 08/18/21 00:06 ALT 30 (12-78) 08/18/21 00:06 Alkaline Phosphatase 86 U/L (45-117) 08/18/21 00:06 Troponin I < 0.015 ng/ml (0-0.045) 08/18/21 00:52 Total Protein 8.3 gm/dl (6.4-8.2) H 08/18/21 00:06 Albumin 4.1 gm/dl (3.4-5.0) 08/18/21 00:06 Globulin 4.2 gm/dl (2.5-4.0) H 08/18/21 00:06 Albumin/Globulin Ratio 1.0 (0.9-2) 08/18/21 00:06 Amylase 359 U/L (25-115) H 08/18/21 00:52 Lipase 2671 U/L (73-393) H 08/18/21 00:06 Urine Color Yellow 08/18/21 Unknown Urine Appearance Turbid (Clear) A 08/18/21 Unknown Urine pH 8.5 (4.5-7.5) H 08/18/21 Unknown Ur Specific [place] 1.044 (1.000-1.030) H 08/18/21 Unknown Urine Protein Negative (Negative) 08/18/21 Unknown Urine Glucose (UA) Negative (Negative) 08/18/21 Unknown Urine Ketones 1+ (Negative) H 08/18/21 Unknown Urine Blood Negative (Negative) 08/18/21 Unknown Urine Nitrite Negative (Negative) 08/18/21 Unknown Urine Bilirubin Negative (Negative) 08/18/21 Unknown Urine Urobilinogen Negative (Negative) 08/18/21 Unknown Ur Leukocyte Esterase Negative (Negative) 08/18/21 Unknown Urine WBC (Auto) 1-5 /hpf (0-5) 08/18/21 Unknown Urine RBC (Auto) 0-4 /hpf (0-4) 08/18/21 Unknown U Hyaline Cast (Auto) 1-5 /lpf (0-5) 08/18/21 Unknown U Epithel Cells (Auto) 20-30 /lpf (0-5) H 08/18/21 Unknown Urine Bacteria (Auto) Negative (Negative) 08/18/21 Unknown Urine Opiates Screen Pos (Neg) H 08/18/21 Unknown Ur Methadone, Qual Neg (Neg) 08/18/21 Unknown Urine Barbiturates Neg (Neg) 08/18/21 Unknown Ur Phencyclidine (PCP) Neg (Neg) 08/18/21 Unknown U Amphetamin/Meth Scrn Neg (Neg) 08/18/21 Unknown MDMA (Ecstasy) Screen Neg (Neg) 08/18/21 Unknown U Benzodiazepines Scrn Neg (Neg) 08/18/21 Unknown Ur Cocaine Metabolite Pos (Neg) H 08/18/21 Unknown U Marijuana (THC) Screen Neg (Neg) 08/18/21 Unknown Ethyl Alcohol mg/dL < 3.0 mg/dl (0-3) 08/18/21 00:52 SARS-CoV-2, RNA, NAAT NEGATIVE (NEGATIVE) 08/18/21 01:[address] Abdomen - per STAT rad - Liver and spleen appear normal. Edema in the pancreas and surrounding soft tissues. Gallbladder is mildly distended without stones or thickening. Stomach, small bowel, colon and appendix appear normal. Adrenals, kidneys, ureter bladder and prostate are normal. Vascular structures appear normal. No free peritoneal air or fluid. Surgical changes in lumbar spine. Impression: Acute pancreatitis Code Status & VTE Plan VTE Prophylaxis Plan VTE Prophylaxis will be ordered: Yes PG Care Time/CCT Total # of Minutes Spent Total Time Spent with Patient: Total time spent is greater than 50% in coordination of care (as documented) at patient's floor/unit and/or counseling patient: Coding Level of Care Code 22358 Initial Inpt Care Lvl 2 Diagnoses Acute pancreatitis K85.90
[2021-08-18] MEDS ORDERED: bisacodyL 10 MG SUPP PR PRN (04:44)
[2021-08-18] MEDS ORDERED: ONDANSETRON INJ 2 MG/ML 2 ML VIAL IV PRN (04:44)
[2021-08-18] MEDS: HYDROmorphone INJ 1 MG/ML SYRINGE IV PRN ×5 (05:20→15:09)
[2021-08-18 05:29] LABS: Chol HDL Ratio 5; Cholesterol 185 mg/dl (0-200); HDL Cholesterol 37 mg/dl; LDL Cholesterol Calculated 113 mg/dl; Triglycerides 173 mg/dl (0-150); VLDL Cholesterol 35 mg/dl
[2021-08-18] MEDS: SODIUM CHLORIDE 0.9% 1000ML 1,000 ML IV SCH ×2 (05:29→10:03)
[2021-08-18] MEDS: ENOXAPARIN INJ 40 MG/0.4 ML SYR SQ SCH (05:51)
[2021-08-18] MEDS: KETOROLAC TROMETHAMINE 15 MG/ML VIAL IV PRN ×4 (06:25→23:26)
--- NOTE | 2021-08-18 07:15 | CT Scan Report ---
CT OF THE ABDOMEN AND PELVIS WITH CONTRAST CLINICAL HISTORY: Epigastric abdominal pain. COMPARISON STUDY: Abdominal ultrasound November 15, 2014. CT of the abdomen and pelvis May 22, 2013 . TECHNIQUE: Following IV administration of 94 mL of Optiray, axial images of the abdomen and pelvis we re obtained from the lung bases to the proximal femurs. Images were reviewed in the axial, sagittal, and coronal planes. IV contrast was administered without complication. Automated exposure control wa s utilized for the study. A dose lowering technique was utilized adhering to the principles of ALARA . CT DOSE: 739.64 mGy.cm FINDINGS: Lung bases are unremarkable. No pneumatosis, free air or portal venous gas is present. Foca l fat along the ligamentum teres. No hepatic lesions are present. The gallbladder is mildly distended . There is no pericholecystic infiltration. There is mild dilatation of the common bile duct, measuri ng 1 cm in diameter. There is moderate peripancreatic stranding and fluid. No peripancreatic fluid co llections are present. There is no definite evidence for pancreatic necrosis. Major vessels are paten t. The spleen and adrenal glands are unremarkable. Probable cyst within the upper pole the left kidne y is difficult to characterize given its small size. Multiple small left renal calculi are present. T here are possible right renal calculi versus excreted contrast. There are no ureteral calculi and the re is no hydronephrosis. Caliber and wall thickness of small and large bowel are normal. There is no evidence for a bowel obstruction. The appendix is normal. There is no lymphadenopathy. No acute fract ure or suspicious lesion is identified within the visualized skeletal structures. Patient is status p ost L5-S1 discectomy, posterior decompression and bilateral pedicle screw fusion. Hyperdense material is noted within portions of the colon. IMPRESSION: 1. Moderate peripancreatic stranding and fluid consistent with acute pancreatitis. No peripancreatic fluid collection. 2. Mild dilatation of the common bile duct which could be correlated with liver function tests. Mild gallbladder distention. No pericholecystic infiltration. 3. Left-sided nephrolithiasis. Possible small right renal calculi. No ureteral calculi or hydronephro sis. ACT 112: Negative or not required by law. Electronically signed by: Esteban Parra M.D. 08/18/2021 7:14 AM
[2021-08-18] MEDS: FAMOTIDINE 20 MG in SYRINGE 3 ML IV SCH ×2 (10:04→21:30)
[2021-08-18] MEDS ORDERED: HYDROmorphone INJ 1 MG/ML SYRINGE IV STA ×2 (10:42→16:42)
--- NOTE | 2021-08-18 10:42 | Gastrointestinal Consultation ---
Date of Consultation August 18, 2021 Assessment & Plan (1) Acute pancreatitis: (2) Common bile duct dilatation: -Keep NPO -Aggressive IV fluid hydration -Pain control per primary team -MRCP given findings of mild CBD dilatation -Further recommendations pending results of that testing Supervising Physician Co-Signing Physician Notes I personally evaluated the patient and agree with the findings as documented by Anita Porter, DEMETRIS Exam: abd: soft, nt, nd History of Present Illness Reason for Consultation: Pancreatitis Attending Physician: Alfonso Nunez MD History of Present Illness Patient is a 45 yo male with PMH of chronic back pain with narcotic dependence presented to the ED with complaints of severe abdominal pain over the past 1 day. He notes that the pain is in the epigastric region and is not improved with IV pain medication. He rates his pain as a 9/10 currently. He reports some associated nausea and vomiting. CT imaging in the ED was suggestive of pancreatitis with a mildly dilated common bile duct. WBC count is 16,750. T bili 0.4. AST 15. ALT 30. Father from pancreatic cancer in his 50s. Patient's tox screen was positive for cocaine. Triglycerides were mildly elevated at 173. Patient denies any alcohol use. Amylas 359. Lipase 2671. 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 Beliefs That Will Affect Care: None Current Living Situation: Family Feels Safe at Home: Yes Assistive Devices: None Review of Systems Constitutional: no fever and no chills Respiratory: no cough and no dyspnea Cardiovascular: no chest pain Gastrointestinal: + abdominal pain, + nausea and + vomiting (now resolved); no diarrhea/loose stools and no blood in stools Psychiatric: no problem reported Physical Exam Constitutional: no acute distress Respiratory: normal respiratory effort, lungs clear to auscultation Cardiovascular: RRR, no murmur, no edema Gastrointestinal (Abdomen): normal bowel sounds, soft, nontender, no hepatosplenomegaly Musculoskeletal: Head/Neck/Chest: normocephalic Psychiatric: Orientation: alert and oriented x 3 Results & Data ([facility]) Vital Signs (Past 12 Hours) Vital Signs Temp Pulse Pulse Resp BP BP Pulse Ox 08/18/21 08:00 70 16 155/95 H 95 08/18/21 06:52 69 20 150/92 H 98 08/18/21 06:26 75 20 159/97 H 98 08/18/21 05:54 78 20 161/98 H 96 08/18/21 05:29 72 18 148/102 H 94 08/18/21 04:57 72 20 172/103 H 95 08/18/21 04:23 85 20 169/101 H 97 08/18/21 03:13 73 20 130/82 96 08/18/21 02:42 78 20 164/99 H 97 08/18/21 02:05 72 20 158/98 H 98 08/18/21 01:50 78 20 143/87 H 98 08/18/21 01:00 89 20 148/110 H 99 08/18/21 00:37 98 08/18/21 00:34 73 20 162/107 H 98 08/17/21 23:59 36.5 C 71 18 152/93 H 97 PG Care Time/CCT Total # of Minutes Spent Total Time Spent with Patient: Total time spent is greater than 50% in coordination of care (as documented) at patient's floor/unit and/or counseling patient: Coding Level of Care Code 56325 Inpt Consult Level 4 Diagnoses Acute pancreatitis K85.90 Common bile duct dilatation K83.8
--- NOTE | 2021-08-18 14:00 | Magnetic Resonance Report ---
MRCP CLINICAL HISTORY: Common bile duct dilatation. TECHNIQUE: Utilizing a 1.5 Abby magnet and dedicated coil, multiplanar, multiecho imaging of the [facility] abdomen was performed utilizing heavily T2 weighted pulsing sequences without IV contrast. COMPARISON STUDY: CT of the abdomen and pelvis August 18, 2021. Abdominal ultrasound November 15, 2014. FINDINGS: There is mild intra and extra hepatic biliary ductal dilatation. Common bile duct measures 9 mm in caliber. No common bile duct calculi are identified. Course and caliber of the main pancreati c duct is normal. The pancreas is edematous. There is moderate peripancreatic fluid. No peripancreati c fluid collection is present. There are multiple gallstones within the gallbladder. Gallbladder is d istended but there is no gallbladder wall thickening or pericholecystic fluid. No hepatic lesions are identified on this unenhanced exam. There is a probable left renal cyst is suboptimally assessed on this unenhanced exam. The spleen and adrenal glands are unremarkable. Caliber of visualized small and large bowel are normal. IMPRESSION: 1. Mild biliary ductal dilatation. No common bile duct calculi identified. 2. Findings consistent with acute pancreatitis. Edematous pancreas with moderate peripancreatic fluid . 3. Cholelithiasis. Mild gallbladder distention. No gallbladder wall thickening or pericholecystic flu id. ACT 112: Negative or not required by law. Electronically signed by: Esteban Parra M.D. 08/18/2021 1:59 PM
--- NOTE | 2021-08-18 15:55 | Electrocardiogram Report ---
Test Reason : Blood Pressure : / mmHG Vent. Rate : 063 BPM Atrial Rate : 063 BPM P-R Int : 158 ms QRS Dur : 102 ms QT Int : 424 ms P-R-T Axes : 036 035 025 degrees QTc Int : 433 ms Poor data quality, interpretation may be adversely affected Normal sinus rhythm Normal ECG When compared with ECG of 12-AUG-2016 09:34, No significant change was found Confirmed by Rene Chavez ([id number]) on 08/18/2021 3:54:54 PM Referred By: REFERRED SELF Confirmed By:Rene Chavez
[2021-08-18] MEDS ORDERED: HYDROmorphone INJ 1 MG/ML SYRINGE IV PRN (16:43)
[2021-08-18] MEDS ORDERED: NALOXONE HCL 0.4 MG/1 ML VIAL/CARP IV PRN (18:19)
[2021-08-18] MEDS: HYDROmorphone PCA 30 MG/30 ML IV PRN (19:28)
[2021-08-19] MEDS: KETOROLAC TROMETHAMINE 15 MG/ML VIAL IV PRN ×4 (04:39→21:52)
[2021-08-19 06:38] LABS: Basophils # (auto) 0.01 K/uL (0-0.2); Basophils % (auto) 0.1 %; Eosinophils # (auto) 0.03 K/uL (0-0.5); Eosinophils % (auto) 0.2 %; Hematocrit (blood only) 40.4 % (42-52); Hemoglobin 13.2 g/dL (14.0-18.0); Immature Granulocytes # (auto) 0.06 K/uL (0.00-0.02); Immature Granulocytes % (auto) 0.4 %; Lymphocytes # (auto) 1.16 K/uL (1.2-3.4); Lymphocytes % (auto) 6.8 %; Mean Corpuscular Hgb Conc 32.7 g/dL (32-36); Mean Corpuscular Volume 94.8 fL (80-100); Mean Platelet Volume 9.9 fL (7.4-10.4); Monocytes # (auto) 1.28 K/uL (0.11-0.59); Monocytes % (auto) 7.5 %; Neutrophils # (auto) 14.48 K/uL (1.4-6.5); Platelet Count 239 K/uL (130-400); RDW Coefficient of Variation 13.9 % (11.5-14.5); RDW Standard Deviation 47.1 fL (36.4-46.3); Red Blood Count 4.26 M/uL (4.7-6.1); White Blood Count 17.02 K/uL (4.8-10.8)
[2021-08-19 08:02] LABS: Albumin Globulin Ratio 0.7 (0.9-2); Albumin Level 2.9 gm/dl (3.4-5.0); BUN Creatinine Ratio 15.9 (10-20); Bilirubin,Total 0.6 mg/dl (0.2-1); Calcium 8.9 mg/dl (8.5-10.1); Creatinine Clr Calc Pharmacy 174.7 ml/min; Est GFR (African American) 130.6 ml/min; Est GFR (Non-African American) 112.7 ml/min; Globulin 3.9 gm/dl (2.5-4.0); Potassium 3.2 mmol/L (3.5-5.1); Total Protein 6.8 gm/dl (6.4-8.2)
[2021-08-19] MEDS: ENOXAPARIN INJ 40 MG/0.4 ML SYR SQ SCH (08:05)
[2021-08-19] MEDS: FAMOTIDINE 20 MG in SYRINGE 3 ML IV SCH ×2 (08:05→20:19)
[2021-08-19] MEDS: HYDROmorphone PCA 30 MG/30 ML IV PRN (09:27)
--- NOTE | 2021-08-19 09:36 | Gastroenterology Progress Note ---
Date of Service August 19, 2021 Assessment & Plan (1) Common bile duct dilatation: (2) Acute pancreatitis: Plan: -NPO, advance to liquids when able -IV fluid hydration -Pain control per primary team -Continue to monitor LFTs -Will need outpatient EUS and outpatient general surgery consult for possible cholecystectomy Admission and Anticipated Discharge Date Admission Date: August 18, 2021 Subjective Patient is a 45 yo male with pancreatitis. MRCP indicated dilated CBD without evidence of retained stones. Gallbladder noted to have stones. Patient reports improvement of his pain since yesterday. No new symptoms. Review of Systems Constitutional: no fever and no chills Respiratory: no cough and no dyspnea Cardiovascular: no chest pain Gastrointestinal: + abdominal pain (improving); no change in bowel habits Physical Exam Constitutional: well developed Respiratory: normal respiratory effort, lungs clear to auscultation Cardiovascular: Rate/Rhythm: regular rate and regular rhythm Gastrointestinal (Abdomen): normal bowel sounds, soft, nontender, no hepatosplenomegaly Musculoskeletal: Head/Neck/Chest: normocephalic Psychiatric: Orientation: alert and oriented x 3 Results & Data Results & Data ([facility]) Vital Signs (Past 12 Hours) Vital Signs Temp Pulse Resp BP BP Pulse Ox 08/19/21 07:32 36.8 C 68 18 162/76 H 96 08/19/21 05:16 71 17 152/90 H 08/19/21 03:46 36.7 C 70 18 149/88 H 95 08/19/21 02:16 36.7 C 65 15 147/89 H 95 08/19/21 00:52 64 19 132/87 96 08/18/21 22:28 37.9 C H 95 H 19 152/78 H 95 PG Care Time/CCT Total # of Minutes Spent Total Time Spent with Patient: Total time spent is greater than 50% in coordination of care (as documented) at patient's floor/unit and/or counseling patient: Coding Level of Care Code 63254 Subseq Hosp Care Lvl 3 Diagnoses Common bile duct dilatation K83.8 Acute pancreatitis K85.90
[2021-08-19] MEDS: D5NSS + 20MEQ KCL 20 MEQ/1,000 ML BAG IV SCH ×2 (10:40→17:35)
--- NOTE | 2021-08-19 14:23 | Hospitalist Progress Note ---
Date of Service August 19, 2021 Assessment & Plan (1) Acute pancreatitis: Plan: Continue n.p.o. status. IV fluids and pain control measures. Appreciate GI consultation. Serial lab studies daily including lipase. MRCP negative for common bile duct stones. (2) Opioid abuse: Plan: The patient has chronic opioid use and has a high tolerance. He is requiring high-dose parenteral narcotics for pain control. Plan: DVT prophylaxis: Lovenox 40mg Code - Full Dispo -eventual discharge to home Admission and Anticipated Discharge Date Admission Date: August 18, 2021 Subjective Alert and oriented. No acute distress. He still has epigastric discomfort as expected. Potassium added to IV fluids to correct mild hypokalemia. D5 also added to IV fluids to prevent hypoglycemia. He is opiate tolerant and requiring high doses for pain control. Lipase has improved to 1108 however Review of Systems Review of Systems: Constitutional-no fever or chills ENT-no blurred vision, no double vision, no epistaxis, no sore throat Respiratory-no cough, no wheezing, no shortness of breath Cardiac-no palpitations, no chest pain, no syncope GI-epigastric abdominal discomfort with nausea. No vomiting, diarrhea, melena, hematochezia -no urinary retention, no urinary incontinence, no dysuria, no hematuria Musculoskeletal-no joint pain, no muscle tenderness Skin-no bruising, no rashes, no pruritus Neuro-no isolated weakness, no paresthesia, no weakness Psych-no depression, no anxiety Physical Exam Physical Exam: General-alert and oriented x3, no fevers, no chills HEENT-head atraumatic and normocephalic, TMs intact bilaterally, pupils equal and reactive to light, extraocular muscles intact Neck-no lymphadenopathy or thyromegaly, trachea midline Chest-clear to auscultation percussion. No rales wheezing or rhonchi Cardiac-regular rate and rhythm, normal S1 and S2, no murmurs Abdomen-epigastric tenderness. No masses. No rebound or guarding. Hypoactive bowel sounds but present Extremities-no cyanosis, clubbing, or edema Neuro-cranial nerves II through XII intact, motor and sensory function within normal limits, strength symmetrical , no focal deficits Psych-flat affect Results & Data Results & Data ([facility]) Vital Signs (Past 12 Hours) Vital Signs Temp Pulse Resp BP Pulse Ox 08/19/21 07:32 36.8 C 68 18 162/76 H 96 08/19/21 05:16 71 17 152/90 H 08/19/21 03:46 36.7 C 70 18 149/88 H 95 PG Care Time/CCT Total # of Minutes Spent Total Time Spent with Patient: Total time spent is greater than 50% in coordination of care (as documented) at patient's floor/unit and/or counseling patient: Coding Level of Care Code 52349 Subseq Hosp Care Lvl 3 Diagnoses Acute pancreatitis K85.90 Opioid abuse F11.10
[2021-08-20] MEDS: D5NSS + 20MEQ KCL 20 MEQ/1,000 ML BAG IV SCH ×4 (00:36→20:51)
[2021-08-20] MEDS: HYDROmorphone PCA 30 MG/30 ML IV PRN ×2 (02:22→16:18)
[2021-08-20] MEDS: KETOROLAC TROMETHAMINE 15 MG/ML VIAL IV PRN ×4 (03:37→20:52)
[2021-08-20] MEDS: FAMOTIDINE 20 MG in SYRINGE 3 ML IV SCH ×2 (07:51→20:52)
[2021-08-20] MEDS: ENOXAPARIN INJ 40 MG/0.4 ML SYR SQ SCH (07:52)
[2021-08-20 08:02] LABS: Basophils # (auto) 0.02 K/uL (0-0.2); Basophils % (auto) 0.1 %; Eosinophils % (auto) 1.1 %; Hematocrit (blood only) 38.2 % (42-52); Hemoglobin 12.4 g/dL (14.0-18.0); Immature Granulocytes # (auto) 0.05 K/uL (0.00-0.02); Immature Granulocytes % (auto) 0.3 %; Lymphocytes # (auto) 1.54 K/uL (1.2-3.4); Lymphocytes % (auto) 8.6 %; Mean Corpuscular Hemoglobin 31.2 pg (25-34); Mean Corpuscular Hgb Conc 32.5 g/dL (32-36); Mean Platelet Volume 9.7 fL (7.4-10.4); Monocytes # (auto) 1.52 K/uL (0.11-0.59); Monocytes % (auto) 8.5 %; Neutrophils # (auto) 14.64 K/uL (1.4-6.5); Neutrophils % (auto) 81.4 %; Platelet Count 231 K/uL (130-400); RDW Standard Deviation 48.9 fL (36.4-46.3); Red Blood Count 3.98 M/uL (4.7-6.1); White Blood Count 17.97 K/uL (4.8-10.8)
[2021-08-20 08:53] LABS: Albumin Globulin Ratio 0.7 (0.9-2); Albumin Level 2.7 gm/dl (3.4-5.0); BUN Creatinine Ratio 11.8 (10-20); Bilirubin,Total 0.9 mg/dl (0.2-1); Calcium 8.7 mg/dl (8.5-10.1); Creatinine Clr Calc Pharmacy 177.1 ml/min; Est GFR (African American) 131.3 ml/min; Est GFR (Non-African American) 113.3 ml/min; Globulin 4.1 gm/dl (2.5-4.0); Potassium 3.7 mmol/L (3.5-5.1); Total Protein 6.8 gm/dl (6.4-8.2)
[2021-08-20 09:56] LABS: Cocaine, Urine >15000 ng/mL (<100); Codeine Urine NEGATIVE ng/mL (<50); Hydrocodone Urine NEGATIVE ng/mL (<50); Hydromor Urine NEGATIVE ng/mL (<50); Morphine Urine NEGATIVE ng/mL (<50); Norhydrocodone Conf Ur NEGATIVE ng/mL (<50); Noroxycodone Urine >10000 ng/mL (<50); Oxycodone Urine 3020 ng/mL (<50); Oxymorph Urine 4910 ng/mL (<50)
--- NOTE | 2021-08-20 10:07 | Gastroenterology Progress Note ---
Date of Service August 20, 2021 Assessment & Plan (1) Common bile duct dilatation: (2) Acute pancreatitis: Plan: Given pancreatitis and CBD dilatation on imaging, suspect patient had a stone pass. -Ok to try liquid diet. If worsening, return to NPO status. -IV fluid hydration. -Pain control per primary team. May need to involve pain management given his opioid dependence history. -Will need outpatient EUS and general surgery eval Admission and Anticipated Discharge Date Admission Date: August 18, 2021 Subjective Patient is a 45 yo male with presumed gallstone pancreatitis. He reports improvement in his pain since admission, though he notes that he still is requiring significant amounts of pain medication. He reports that he feels capable of advancing to a liquid diet. Lipase is 505 today. LFTs remain unremarkable. Patient has leukocytosis. Review of Systems Constitutional: no fever and no chills Respiratory: no cough and no dyspnea Gastrointestinal: + abdominal pain (improving) Physical Exam Constitutional: well developed Respiratory: normal respiratory effort, lungs clear to auscultation Cardiovascular: RRR, no murmur, no edema Gastrointestinal (Abdomen): Inspection/Auscultation: abdomen normal to inspection Percussion/Palpation: + abdomen tender and abdomen soft Results & Data Results & Data ([facility]) Vital Signs (Past 12 Hours) Vital Signs Temp Pulse Resp BP Pulse Ox 08/20/21 07:34 36.8 C 71 19 170/107 H 95 08/20/21 04:03 37.3 C 78 19 152/90 H 95 08/19/21 23:21 36.9 C 75 24 147/91 H 94 PG Care Time/CCT Total # of Minutes Spent Total Time Spent with Patient: Total time spent is greater than 50% in coordination of care (as documented) at patient's floor/unit and/or counseling patient: Coding Level of Care Code 05222 Subseq Hosp Care Lvl 3 Diagnoses Common bile duct dilatation K83.8 Acute pancreatitis K85.90
--- NOTE | 2021-08-20 15:58 | Hospitalist Progress Note ---
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 patient has high tolerance to pain meds, given his history of abuse appreciate GI recs (2) Opioid abuse: Plan: The patient has chronic opioid use and has a high tolerance. He is requiring high-dose parenteral narcotics for pain control. consult pain management (3) Gall stone: Plan: Plan for outpatient cholecystectomy Plan: DVT prophylaxis: Lovenox 40mg Code - Full Dispo -eventual discharge to home Admission and Anticipated Discharge Date Admission Date: August 18, 2021 Subjective patient still in a lot of abdominal pain, tolerating clear liquid diet Review of Systems Review of Systems: All systems reviewed are negative, apart from the ones contained in the history. Physical Exam Physical Exam: The patient is awake, alert and oriented 3, well developed and well nourished, normocephalic and atraumatic, lying in bed and in no acute distress. HEENT--PERRL, EOMI, mucous membranes and oropharynx mildly dry Neck--supple. No JVD. No bruits. Thyroid normal, trachea midline, no adenopathy. Heart--normal S1 and S2. No murmurs, rubs or gallops. Lungs--clear bilaterally, no respiratory distress, no accessory muscle use. Abdomen--epigastric tenderness Extremities--no cyanosis or clubbing. No edema. Dermatologic--normal skin turgor, normal color, no abnormal lymph nodes, no lindsay h. Neurologic--cranial nerves II through XII grossly intact. Rheumatologic--normal range of motion. Psychiatric--normal affect. Results & Data Results & Data ([facility]) Vital Signs (Past 12 Hours) Vital Signs Temp Pulse Resp BP Pulse Ox 08/20/21 15:37 98.2 F 67 18 147/92 H 95 08/20/21 12:20 98.6 F 65 18 165/97 H 95 08/20/21 07:34 98.2 F 71 19 170/107 H 95 08/20/21 04:03 99.1 F 78 19 152/90 H 95 PG Care Time/CCT Total # of Minutes Spent Total Time Spent with Patient: Total time spent is greater than 50% in coordination of care (as documented) at patient's floor/unit and/or counseling patient: Coding Level of Care Code 83504 Subseq Hosp Care Lvl 2 Diagnoses Acute pancreatitis K85.90 Opioid abuse F11.10 Gall stone K80.20
[2021-08-21] MEDS ORDERED: ACETAMINOPHEN 1,000 MG/100 ML VIAL IV STA (01:36)
[2021-08-21] MEDS: KETOROLAC TROMETHAMINE 15 MG/ML VIAL IV PRN ×4 (02:23→20:00)
[2021-08-21] MEDS: D5NSS + 20MEQ KCL 20 MEQ/1,000 ML BAG IV SCH ×4 (03:30→22:44)
[2021-08-21 06:28] LABS: Basophils # (auto) 0.02 K/uL (0-0.2); Basophils % (auto) 0.1 %; Eosinophils # (auto) 0.63 K/uL (0-0.5); Eosinophils % (auto) 4.3 %; Hematocrit (blood only) 38.7 % (42-52); Hemoglobin 12.8 g/dL (14.0-18.0); Immature Granulocytes # (auto) 0.05 K/uL (0.00-0.02); Immature Granulocytes % (auto) 0.3 %; Lymphocytes # (auto) 1.39 K/uL (1.2-3.4); Lymphocytes % (auto) 9.4 %; Mean Corpuscular Hemoglobin 31.9 pg (25-34); Mean Corpuscular Hgb Conc 33.1 g/dL (32-36); Mean Corpuscular Volume 96.5 fL (80-100); Mean Platelet Volume 10.1 fL (7.4-10.4); Monocytes # (auto) 1.15 K/uL (0.11-0.59); Monocytes % (auto) 7.8 %; Neutrophils # (auto) 11.47 K/uL (1.4-6.5); Neutrophils % (auto) 78.1 %; Platelet Count 253 K/uL (130-400); RDW Standard Deviation 49.2 fL (36.4-46.3); Red Blood Count 4.01 M/uL (4.7-6.1); White Blood Count 14.71 K/uL (4.8-10.8)
[2021-08-21 07:03] LABS: Albumin Level 2.8 gm/dl (3.4-5.0); BUN Creatinine Ratio 6.6 (10-20); Calcium 9.1 mg/dl (8.5-10.1); Creatinine Clr Calc Pharmacy 165.5 ml/min; Est GFR (African American) 127.7 ml/min; Est GFR (Non-African American) 110.2 ml/min; Potassium 3.4 mmol/L (3.5-5.1)
[2021-08-21 07:06] LABS: Albumin Globulin Ratio 0.7 (0.9-2); Bilirubin,Total 0.9 mg/dl (0.2-1); Globulin 4.3 gm/dl (2.5-4.0); Total Protein 7.1 gm/dl (6.4-8.2)
[2021-08-21] MEDS: HYDROmorphone PCA 30 MG/30 ML IV PRN (07:08)
[2021-08-21] MEDS ORDERED: oxyCODONE/ACETAMINOPHEN 10-325 TAB PO PRN (07:59)
--- NOTE | 2021-08-21 08:06 | Pain Management Consultation ---
Date of Consultation August 21, 2021 Assessment & Plan (1) Acute pancreatitis: (2) Cocaine abuse: (3) Chronic, continuous use of opioids: * Resume Percocet 10/325mg. Will increase from q6 to q4 during hospitalization. * Continue IV Toradol as he does find it the most effective towards diminishing his pain. * Dilaudid [employer] has been discontinued. He has used over 25mg over the past 24 hours and states that it is not providing much pain relief. * I have placed him on IV Dilaudid 1mg x 2 hours if needed for breakthrough pain. He will limit the use of this IV medication in preparation for discharge in the next day or two. * Would not consider celiac plexus nerve block at this time. Lipase is almost back within normal limits and the pain in the epigastrium has now resolved. Thank you for the consultation. History of Present Illness Reason for Consultation: Intractable abdominal pain Attending Physician: Michelle Gonzales MD History of Present Illness Mr. Núñez is a 45 year old male with pancreatitis. He states that his symptoms started about 1 week ago with epigastric abdominal pain, vomiting, and diarrhea. He was not able to keep any food or drink down. Found to have pancreatitis on CT scan. Patient does have a history of chronic opioid use for chronic low back pain which he is receiving Percocet 10/325mg four times daily. Urine drug screen was positive for Percocet as well as cocaine. He has been on Percocet for several years which controls the low back pain. For pancreatitis treatment oral opioids were held and he was placed on a Dilaudid [employer] which he has been using often. Over the past 24 hours he has used around 25-30 mg of IV Dilaudid. If used every 10 minutes the max out would be 36mg daily. He does not find the IV Dilaudid efficacious towards diminishing the pain. The IV Toradol has been providing moderate pain relief. Today the epigastric abdominal pain has resolved and now the pain is more mild in the lower abdomen. No radiation of pain. He did have an episode of vomiting yesterday after drinking some water but overall he is noting an improvement. No constipation, flank pain, urinary sx. Allergies Allergy/AdvReac Type Severity Reaction Status Date / Time No Known Allergies Allergy Verified 08/18/21 00:56 Home Medications Medication Instructions Recorded Confirmed Type oxycodone-acetaminophen 10 mg-325 1 tab PO Q6H PRN 08/18/21 08/18/21 History mg tablet Pain History Pain Location Full Body Front + Back: 1. Patient History Medical History Kidney stones Lumbar stenosis with neurogenic claudication Surgical History No significant past surgical history Social History Smoking Status: Former smoker Second Hand Exposure: No; Hx Alcohol Use: No Hx Substance Use: No Preferred Language: Egyptian Communication Ability: Effective Order Manager Required: No Beliefs That Will Affect Care: None Current Living Situation: Family Feels Safe at Home: Yes Assistive Devices: None Physical Exam Physical Exam: GENERAL: This is a 45 year old male. Does not appear in any acute distress. HEAD/FACE: Normocephalic and atraumatic. EYES: No drainage or conjunctival injection. ENT: Nose without bleeding or discharge. Oral mucosa moist. NECK: Full ROM without apparent pain. No swelling or masses noted. RESPIRATORY: Patient with unlabored breathing. No signs of respiratory distress. CHEST/AXILLA: Chest movement symmetrical. No deformities noted. ABDOMEN/GI: No distension. No epigastric tenderness. Mild lower abdominal tenderness. No guarding or rebound tenderness. No peritoneal signs. BACK: Moves without difficulty SKIN: [place], warm and dry. No rash noted. MS/EXTREMITY: No swelling, no deformities. Moving extremities appropriately. NEURO: Alert and appears oriented. Speech is fluent. Cranial Nerves are grossly intact. PSYCH: Alert, pleasant, affect is calm Results (Pain Clinic) Laboratory Review Additional Comments: Lipase 08/18 2671 08/19 1180 08/20 505 08/[address] Findings: CT OF THE ABDOMEN AND PELVIS WITH CONTRAST CLINICAL HISTORY: Epigastric abdominal pain. COMPARISON STUDY: Abdominal ultrasound November 15, 2014. CT of the abdomen and pelvis May 22, 2013. TECHNIQUE: Following IV administration of 94 mL of Optiray, axial images of the abdomen and pelvis were obtained from the lung bases to the proximal femurs. Images were reviewed in the axial, sagittal, and coronal planes. IV contrast was administered without complication. Automated exposure control was utilized for the study. A dose lowering technique was utilized adhering to the principles of ALARA. CT DOSE: 739.64 mGy.cm FINDINGS: Lung bases are unremarkable. No pneumatosis, free air or portal venous gas is present. Focal fat along the ligamentum teres. No hepatic lesions are present. The gallbladder is mildly distended. There is no pericholecystic infiltration. There is mild dilatation of the common bile duct, measuring 1 cm in diameter. There is moderate peripancreatic stranding and fluid. No peripancreatic fluid collections are present. There is no definite evidence for pancreatic necrosis. Major vessels are patent. The spleen and adrenal glands are unremarkable. Probable cyst within the upper pole the left kidney is difficult to characterize given its small size. Multiple small left renal calculi are present. There are possible right renal calculi versus excreted contrast. There are no ureteral calculi and there is no hydronephrosis. Caliber and wall thickness of small and large bowel are normal. There is no evidence for a bowel obstruction. The appendix is normal. There is no lymphadenopathy. No acute fracture or suspicious lesion is identified within the visualized skeletal structures. Patient is status post L5-S1 discectomy, posterior decompression and bilateral pedicle screw fusion. Hyperdense material is noted within portions of the colon. IMPRESSION: 1. Moderate peripancreatic stranding and fluid consistent with acute pancreatitis. No peripancreatic fluid collection. 2. Mild dilatation of the common bile duct which could be correlated with liver function tests. Mild gallbladder distention. No pericholecystic infiltration. 3. Left-sided nephrolithiasis. Possible small right renal calculi. No ureteral c alculi or hydronephrosis. ACT 112: Negative or not required by law. Electronically signed by: Esteban Parra M.D. 08/18/2021 7:14 AM
[2021-08-21] MEDS: ENOXAPARIN INJ 40 MG/0.4 ML SYR SQ SCH (08:58)
[2021-08-21] MEDS: FAMOTIDINE 20 MG in SYRINGE 3 ML IV SCH ×2 (08:58→20:27)
[2021-08-21] MEDS: HYDROmorphone INJ 1 MG/ML SYRINGE IV PRN ×4 (11:57→22:48)
--- NOTE | 2021-08-21 13:18 | Hospitalist Progress Note ---
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 He is requiring high-dose parenteral narcotics for pain control. Pain mgt as above (3) Gall stone: Plan: Plan for outpatient cholecystectomy Plan: DVT prophylaxis: Lovenox 40mg Code - Full Dispo -eventual discharge to home Admission and Anticipated Discharge Date Admission Date: August 18, 2021 plan to d/c in the next 24-48 hrs Subjective patients abdominal pain has improved, tolerating clear liquid diet, although pain tends to occur with each feeding Review of Systems Review of Systems: All systems reviewed are negative, apart from the ones contained in the history. Physical Exam Physical Exam: The patient is awake, alert and oriented 3, well developed and well nourished, normocephalic and atraumatic, lying in bed and in no acute distress. HEENT--PERRL, EOMI, mucous membranes and oropharynx mildly dry Neck--supple. No JVD. No bruits. Thyroid normal, trachea midline, no adenopathy. Heart--normal S1 and S2. No murmurs, rubs or gallops. Lungs--clear bilaterally, no respiratory distress, no accessory muscle use. Abdomen--epigastric tenderness Extremities--no cyanosis or clubbing. No edema. Dermatologic--normal skin turgor, normal color, no abnormal lymph nodes, no rash. Neurologic--cranial nerves II through XII grossly intact. Rheumatologic--normal range of motion. Psychiatric--normal affect. Results & Data Results & Data ([facility]) Vital Signs (Past 12 Hours) Vital Signs Temp Pulse Resp BP Pulse Ox 08/21/21 06:46 97.7 F 59 L 16 169/101 H 96 08/21/21 03:49 98.2 F 60 17 155/91 H 94 Laboratory Results Laboratory Results - last 24 hr 08/21/21 08/21/21 05:48 05:48 WBC 14.71 H RBC 4.01 L Hgb 12.8 L Hct 38.7 L MCV 96.5 MCH 31.9 MCHC 33.1 RDW Std Deviation 49.2 H RDW Coeff of Steffany 14.0 Plt Count 253 MPV 10.1 Immature Gran % (Auto) 0.3 Neut % (Auto) 78.1 Lymph % (Auto) 9.4 [place] % (Auto) 7.8 Eos % (Auto) 4.3 Baso % (Auto) 0.1 Neut # (Auto) 11.47 H Lymph # (Auto) 1.39 [place] # (Auto) 1.15 H Eos # (Auto) 0.63 H Baso # (Auto) 0.02 Immature Gran # (Auto) 0.05 H Sodium 136 Potassium 3.4 L Chloride 105 Carbon Dioxide 26 Anion Gap 5.0 BUN 5 L Creatinine 0.76 Est Cr Clr Drug Dosing 165.5 Est GFR ( Amer) 127.7 Est GFR (Non-Af Amer) 110.2 BUN/Creatinine Ratio 6.6 L Glucose 131 H Calcium 9.1 Total Bilirubin 0.9 AST 18 ALT 19 Alkaline Phosphatase 78 Total Protein 7.1 Albumin 2.8 L Globulin 4.3 H Albumin/Globulin Ratio 0.7 L Lipase 437 H PG Care Time/CCT Total # of Minutes Spent Total Time Spent with Patient: Total time spent is greater than 50% in coordination of care (as documented) at patient's floor/unit and/or counseling patient: Coding Level of Care Code 04257 Subseq Hosp Care Lvl 2 Diagnoses Acute pancreatitis K85.90 Opioid abuse F11.10 Gall stone K80.20
[2021-08-22] MEDS: KETOROLAC TROMETHAMINE 15 MG/ML VIAL IV PRN ×3 (02:47→16:38)
[2021-08-22] MEDS: D5NSS + 20MEQ KCL 20 MEQ/1,000 ML BAG IV SCH ×3 (05:27→19:14)
[2021-08-22] MEDS: HYDROmorphone INJ 1 MG/ML SYRINGE IV PRN ×3 (05:29→20:12)
[2021-08-22] MEDS: FAMOTIDINE 20 MG in SYRINGE 3 ML IV SCH ×2 (08:07→20:12)
[2021-08-22] MEDS: ENOXAPARIN INJ 40 MG/0.4 ML SYR SQ SCH (08:08)
--- NOTE | 2021-08-22 08:42 | Pain Management Progress Note ---
Date of Service August 22, 2021 Assessment & Plan (1) Acute pancreatitis: (2) Cocaine abuse: (3) Chronic, continuous use of opioids: Plan: * Continue PO Percocet 10/325mg * IV Dilaudid 1mg x 2 hours if needed for breakthrough pain. He will limit the use of this IV medication in preparation for discharge. Will sign off on the patient. Please call with any questions or concerns. Admission and Anticipated Discharge Date Admission Date: August 18, 2021 Subjective Abdominal pain has improved. He has been able to eat and drink small amounts this morning without any vomiting or abdominal pain. He has been receiving Percocet 10/325mg and IV Dilaudid which has been controlling his pain. Pain is 4/10 currently. Physical Exam Physical Exam: GENERAL: This is a 45 year old male. Does not appear in any acute distress. HEAD/FACE: Normocephalic and atraumatic. EYES: No drainage or conjunctival injection. ENT: Nose without bleeding or discharge. Oral mucosa moist. NECK: Full ROM without apparent pain. No swelling or masses noted. RESPIRATORY: Patient with unlabored breathing. No signs of respiratory distress. CHEST/AXILLA: Chest movement symmetrical. No deformities noted. ABDOMEN/GI: No distension. BACK: Moves without difficulty SKIN: [place], warm and dry. No rash noted. MS/EXTREMITY: No swelling, no deformities. Moving extremities appropriately. NEURO: Alert and appears oriented. Speech is fluent. Cranial Nerves are grossly intact. PSYCH: Alert, pleasant, affect is calm
[2021-08-22 09:00] LABS: Hematocrit (blood only) 35.6 % (42-52); Hemoglobin 11.5 g/dL (14.0-18.0); Mean Corpuscular Hemoglobin 31.1 pg (25-34); Mean Corpuscular Hgb Conc 32.3 g/dL (32-36); Mean Corpuscular Volume 96.2 fL (80-100); Mean Platelet Volume 9.3 fL (7.4-10.4); Platelet Count 227 K/uL (130-400); RDW Coefficient of Variation 13.9 % (11.5-14.5); RDW Standard Deviation 49.2 fL (36.4-46.3); White Blood Count 13.81 K/uL (4.8-10.8)
[2021-08-22 09:16] LABS: BUN Creatinine Ratio 4.3 (10-20); Calcium 8.4 mg/dl (8.5-10.1); Creatinine Clr Calc Pharmacy 179.7 ml/min; Est GFR (African American) 132.1 ml/min; Potassium 3.9 mmol/L (3.5-5.1)
--- NOTE | 2021-08-22 15:55 | Hospitalist Progress Note ---
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, appreciate recs Continue Percocet 10mg and IV Dilaudid q 2 hrs for breakthrough pain patient has high tolerance to pain meds, given his history of abuse appreciate GI recs (2) Opioid abuse: Plan: continue pain meds as above (3) Gall stone: Plan: Plan for outpatient cholecystectomy Plan: DVT prophylaxis: Lovenox 40mg Code - Full Dispo -eventual discharge to home Admission and Anticipated Discharge Date Admission Date: August 18, 2021 Subjective patient seen and examined, continues o tolerate diet, advanced to regular, abd pain under fair control Review of Systems Review of Systems: All systems reviewed are negative, apart from the ones contained in the history. Physical Exam Physical Exam: The patient is awake, alert and oriented 3, well developed and well nourished, normocephalic and atraumatic, lying in bed and in no acute distress. HEENT--PERRL, EOMI, mucous membranes and oropharynx mildly dry Neck--supple. No JVD. No bruits. Thyroid normal, trachea midline, no adenopathy. Heart--normal S1 and S2. No murmurs, rubs or gallops. Lungs--clear bilaterally, no respiratory distress, no accessory muscle use. Abdomen--epigastric tenderness Extremities--no cyanosis or clubbing. No edema. Dermatologic--normal skin turgor, normal color, no abnormal lymph nodes, no rash. Neurologic--cranial nerves II through XII grossly intact. Rheumatologic--normal range of motion. Psychiatric--normal affect. Results & Data Results & Data ([facility]) Vital Signs (Past 12 Hours) Vital Signs Temp Pulse Resp BP Pulse Ox 08/22/21 07:14 97.5 F L 79 16 136/89 94 PG Care Time/CCT Total # of Minutes Spent Total Time Spent with Patient: Total time spent is greater than 50% in coordination of care (as documented) at patient's floor/unit and/or counseling patient: Coding Level of Care Code 80330 Subseq Hosp Care Lvl 2 Diagnoses Acute pancreatitis K85.90 Opioid abuse F11.10 Gall stone K80.20
[2021-08-22 23:32] VITALS: O2SAT 94
[2021-08-23] MEDS: KETOROLAC TROMETHAMINE 15 MG/ML VIAL IV PRN (00:04)
[2021-08-23] MEDS: D5NSS + 20MEQ KCL 20 MEQ/1,000 ML BAG IV SCH ×2 (01:58→08:38)
[2021-08-23] MEDS: HYDROmorphone INJ 1 MG/ML SYRINGE IV PRN ×2 (02:00→06:50)
[2021-08-23 07:12] VITALS: BP 128/83; PULSE 90; TEMP 99.1
[2021-08-23 08:43] LABS: Hematocrit (blood only) 33.2 % (42-52); Hemoglobin 10.7 g/dL (14.0-18.0); Mean Corpuscular Hemoglobin 30.6 pg (25-34); Mean Corpuscular Hgb Conc 32.2 g/dL (32-36); Mean Corpuscular Volume 94.9 fL (80-100); Mean Platelet Volume 9.3 fL (7.4-10.4); Platelet Count 210 K/uL (130-400); RDW Standard Deviation 48.1 fL (36.4-46.3); White Blood Count 12.72 K/uL (4.8-10.8)
[2021-08-23 09:09] LABS: BUN Creatinine Ratio 3.7 (10-20); Calcium 8.3 mg/dl (8.5-10.1); Creatinine Clr Calc Pharmacy 161.2 ml/min; Est GFR (African American) 126.3 ml/min; Potassium 3.6 mmol/L (3.5-5.1)
[2021-08-23] MEDS: ENOXAPARIN INJ 40 MG/0.4 ML SYR SQ SCH (09:15)
[2021-08-23] MEDS: FAMOTIDINE 20 MG in SYRINGE 3 ML IV SCH (09:15)
--- NOTE | 2021-08-23 11:49 | Discharge Summary ---
Date of Service August 23, 2021 Admission HPI Per Admitting Provider Francis Núñez is a 45yo male with history of chronic back pain on longstanding Percocet presenting with acute pancreatitis. Patient reports developing severe epigastric abdominal pain with nausea and non-bloody/non-bilious emesis x 1 day. He has no prior history of pancreatis. Does not drink EtOH. No new medications or OTC agents. ER Course: Morphine 4mg IV x 4 doses (16mg), NSS x 2L, Phenergan Principal Diagnosis acute pancreatitis Discharge Exam The patient is awake, alert and oriented 3, well developed and well nourished, normocephalic and atraumatic, lying in bed and in no acute distress. HEENT--PERRL, EOMI, mucous membranes and oropharynx mildly dry Neck--supple. No JVD. No bruits. Thyroid normal, trachea midline, no adenopathy. Heart--normal S1 and S2. No murmurs, rubs or gallops. Lungs--clear bilaterally, no respiratory distress, no accessory muscle use. Abdomen--epigastric tenderness Extremities--no cyanosis or clubbing. No edema. Dermatologic--normal skin turgor, normal color, no abnormal lymph nodes, no rash. Neurologic--cranial nerves II through XII grossly intact. Rheumatologic--normal range of motion. Psychiatric--normal affect. 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, appreciate recs Continue Percocet 10mg and IV Dilaudid q 2 hrs for breakthrough pain patient has high tolerance to pain meds, given his history of abuse appreciate GI recs (2) Opioid abuse: continue pain meds as above (3) Gall stone: Plan for outpatient cholecystectomy DVT prophylaxis: Lovenox 40mg Code - Full Dispo -eventual discharge to home Total Time Total Time Spent Total Time Spent (In Minutes): 35 Discharge Plan Discharge Items Patient Disposition: Home - Self-Care Reason For Visit: PANCREATITIS Discharge Diagnosis: acute pancreatitis Activity: Resume your previous activity Non-emergency contact: Primary Care Provider Call non-emergency contact if: you have any medication questions Follow-up/Referrals: Kyle Coker PALeyda [Primary Care Provider] - Diet: Regular Addtl Attending Provider Instructions: please make appointment to see a general surgeon for elective cholecystectomy Pending Studies at Discharge: No Stand-Alone Forms: [employer], Smoking Cessation Medications and DC Order Prescriptions: Continued oxycodone-acetaminophen 10-325 mg tablet 1 tab PO Q6H PRN (Reason: Pain) RF: 0 Discharge Orders: Discharge Order (Routine); Ordered 08/23/21 Ordered By: Michelle Gonzales Admission Data Admit Date/Time: 08/18/21 04:31 Attending Provider: Michelle Gonzales Admit Provider: Giselle Rico Primary Care Provider: Kyle Coker Other Providers: Giselle Rico ; Darnell Franks ; Sharlene Stock ; Anita Porter ; Andres Contreras ; Mark Noe Coding Level of Care Code D/C DAY MANAGEMENT >30 MINS Diagnoses Acute pancreatitis K85.90 Opioid abuse F11.10 Gall stone K80.20
--- NOTE | 2021-09-05 11:31 | Coding Query ---
CODING QUERY To promote full compliance with coding requirements relating to patient care, provider participation is requested in all cases of hcc coders uncertainty. Please assist us with the question(s) below: Coding Question(s): There is documentation on the GI Consultation of history of narcotic dependence and the GI Progress Note on 08/20 documents, "Pain control per primary team. May need to involve pain management given his opioid dependence history", and the Pain Management Consultation documents, "Chronic, continuous use of opioids", and the Discharge Summary documents Opioid abuse. It is not clear if there is Opioid Dependence, Opioid Abuse or Opioid Use as the diagnosis due to conflicting documentation. Please specify below, in your clinical opinion. ( ) Opioid Dependence ( ) Opioid Abuse ( ) Opioid Use ( ) Other: Please Specify Physician's Response(s): Opioid use Thank you Natasha Mobley Principal Diagnosis: "that condition established after study, to be chiefly responsible for occasioning the admission of the patient to the hospital for care." Co-Existing Principal Diagnosis: "when two or more diagnoses equally meet the criteria for principal diagnosis as determined by the circumstances of admission, diagnostic work up, and/or therapy provided, and the Alphabetic Index, Tabular List, or another coding guideline does not provide sequencing direction, any one of the diagnoses may be sequenced first." "When the physician has documented what appears to be a current diagnosis in the body of the record, but has not included the diagnosis in the final diagnostic statement, the physician should be asked whether the diagnosis should be added." (Source Coding [facility] 2 QTR90. p3-4) MALINDA
--- NOTE | 2021-10-06 08:56 | Coding Query ---
PATHOLOGY To promote full compliance with coding requirements relating to patient care, physician participation is requested in all cases of air motor repairer uncertainty. Please assist us with the question(s) below: This query had been placed to DR. Michelle Gonzales however the physician was unable to locate the pathology report. Would you please be able to assist with this query? The pathology report is shown within the record on 08/22/21 as "PTH Surgical Specimen". Thank you very much for your help. Please review the Pathology report and please document any relevant diagnosis(es) below: Diagnosis(es): Thank you Natasha PETTY
== END 2021-08-23 14:27 | disposition home or self-care (01) | DRG 440 ==
LOC: ED 23:57 → SUATTDRO 08-18 04:31 → EDINP 08-18 04:31 → 3N 08-18 04:39